=== PATIENT | male | born 1965 | race Caucasian/White ===

== ENCOUNTER 2019-01-29 10:33 | Observation (INO) | payer BC ==
[2019-01-29] MEDS ORDERED: ASPIRIN 81 MG CHEWABLE TABLET ONE (10:56)
[2019-01-29] MEDS ORDERED: NITROGLYCERIN 0.4 MG/TAB SL ONE (10:56)
[2019-01-29] MEDS ORDERED: NA CHLORIDE 0.9% 1,000 ML ONE (10:56)
[2019-01-29 11:19] LABS: Absolute Lymphocytes (CBC) 1.8 K/uL (0.7-4.9); Basophils % 0.9 % (0-1.3); Hematocrit 41.6 % (39.6-49.0); Lymphocytes % 27.3 % (15.3-44.8); MPV 8.1 fL (7.6-11.3); RBC Red Blood Cell Count 4.39 M/uL (4.33-5.43)
[2019-01-29 11:21] LABS: Protime INR 1.03
--- NOTE | 2019-01-29 11:29 | RAD REPORT ---
EXAM DESCRIPTION: RAD - Chest Single View - 01/29/2019 11:18 am CLINICAL HISTORY: CHEST PAIN Chest pain. COMPARISON: No comparisons FINDINGS: Portable technique limits examination quality. The lungs are grossly clear. The heart is normal in size. No displaced fractures. IMPRESSION: No acute intrathoracic process suspected.
[2019-01-29 11:44] LABS: ALT/SGPT 36 U/L (12-78); AST/SGOT 28 U/L (15-37); Albumin 4.1 g/dL (3.4-5.0); Alkaline Phosphatase 83 U/L (45-117); BUN Blood Urea Nitrogen 21 mg/dL (7-18); Bicarbonate 23 mmol/L (21-32); Bilirubin Direct 0.4 mg/dL (0-0.2); Bilirubin Total 1.8 mg/dL (0.2-1.0); Glucose Level 100 mg/dL (74-106); NT PRO-BNP 157 pg/mL (<125); Potassium 3.9 mmol/L (3.5-5.1); Protein, Total 7.2 g/dL (6.4-8.2); Sodium Level 141 mmol/L (136-145); Troponin (Emerg Dept Use Only) < 0.02 ng/mL (0.0-0.045)
[2019-01-29] MEDS ORDERED: MAGNE/ALUM HYDROXD 30 ML UCUP ONE (12:21)
[2019-01-29] MEDS ORDERED: KETOROLAC 30 MG/ML INJ ONE (12:22)
[2019-01-29] MEDS ORDERED: LIDOCAINE VISCOUS 2% SOLN 15 ML UDC ONE (12:22)
--- NOTE | 2019-01-29 13:25 | ER ---
Nurse's Notes [facility] Name: Norris Arguello Age: 54 yrs Sex: Male : 1965 Arrival Date: 01/29/2019 Time: 10:34 Bed 20 Private MD: Diagnosis: Chest pain, unspecified Presentation: 01/29 10:43 Presenting complaint: Patient states: chest pain for the past three days, much worse ch today, heavy pressure. antiacids did not help. had a negative stress test with Dr. Lainez two weeks ago. Transition of care: patient was not received from another setting of care. Onset of symptoms was January 26, 2019. Risk Assessment: Do you want to hurt yourself or someone else? Patient reports no desire to harm self or others. Initial Sepsis Screen: Does the patient meet any 2 criteria? No. Patient's initial sepsis screen is negative. Does the patient have a suspected source of infection? No. Patient's initial sepsis screen is negative. Care prior to arrival: None. 10:43 Method Of Arrival: Ambulatory 10:43 Acuity: FRIEDA 3 ch Historical: - Allergies: 10:44 No Known Allergies; ch - PMHx: 10:44 Hypertension; Hyperlipidemia; Anxiety; ch - Immunization history:: Adult Immunizations up to date. - Social history:: Smoking status: Patient/guardian denies using tobacco, Patient uses alcohol, on a daily basis. - Ebola Screening: : Patient negative for fever greater than or equal to 101.5 degrees Fahrenheit, and additional compatible Ebola Virus Disease symptoms Patient denies exposure to infectious person Patient denies travel to an Ebola-affected area in the 21 days before illness onset No symptoms or risks identified at this time. Screenin:55 Abuse screen: Denies threats or abuse. Denies injuries from another. Nutritional hb screening: No deficits noted. Tuberculosis screening: No symptoms or risk factors identified. Fall Risk None identified. Assessment: 10:55 General: Appears in no apparent distress. Behavior is calm, cooperative. Pain: hb Complains of pain in chest Pain does not radiate. Pain began 2-3 days ago. Neuro: Level of Consciousness is awake, alert, obeys commands, Oriented to person, place, time, situation. Cardiovascular: Heart tones S1 S2 present Capillary refill < 3 seconds Patient's skin is warm and dry. Respiratory: Airway is patent Respiratory effort is even, unlabored, Respiratory pattern is regular, symmetrical, Breath sounds are clear bilaterally. GI: No signs and/or symptoms were reported involving the gastrointestinal system. : No signs and/or symptoms were reported regarding the genitourinary system. EENT: No signs and/or symptoms were reported regarding the EENT system. Derm: Skin is intact, Skin is pink, warm \T\ dry. Musculoskeletal: No signs and/or symptoms reported regarding the musculoskeletal system. 11:45 Reassessment: Patient appears in no apparent distress at this time. Patient and/or hb family updated on plan of care and expected duration. Pain level reassessed. Patient is alert, oriented x 3, equal unlabored respirations, skin warm/dry/pink. 12:36 Reassessment: Patient appears in no apparent distress at this time. Patient and/or hb family updated on plan of care and expected duration. Pain level reassessed. Patient is alert, oriented x 3, equal unlabored respirations, skin warm/dry/pink. 13:20 Reassessment: Patient appears in no apparent distress at this time. Patient and/or hb family updated on plan of care and expected duration. Pain level reassessed. Patient is alert, oriented x 3, equal unlabored respirations, skin warm/dry/pink. Patient denies pain at this time. Patient states feeling better. Patient states symptoms have improved. 13:32 Reassessment: Pt has work emergency, requests to leave, instructed pt re: planned hb repeat labs and EKG, pt verbalized feeling better and wants to leave AMA. KRISH Page notified. Vital Signs: 10:44 BP 135 / 76; Pulse 64; Resp 14; Temp 98.9; Pulse Ox 99% on R/A; Weight 90.72 kg; Height ch 6 ft. (182.88 cm); Pain 5/10; 11:56 BP 120 / 69; Pulse 67; Resp 16; Pulse Ox 100% on R/A; Pain 5/10; hb 13:00 BP 122 / 68; Pulse 66; Resp 16; Pulse Ox 100% on R/A; Pain 0/10; hb 10:44 Body Mass Index 27.12 (90.72 kg, 182.88 cm) ED Course: 10:34 Patient arrived in ED. as 10:39 Page, KRISH Alexander is PHCP. cp 10:39 Yoav Shin MD is Attending Physician. cp 10:44 Triage completed. 10:44 Arm band placed on left wrist. Patient placed in an exam room, on a stretcher, on pulse ch oximetry. EKG completed in triage. Results shown to MD. 10:53 Esther Harkins, RN is Primary Nurse. hb 10:55 Patient has correct armband on for positive identification. Bed in low position. Call hb light in reach. Side rails up X 1. 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 Pulse ox on. NIBP on. 11:01 Initial lab(s) drawn, by me, sent to lab. Inserted saline lock: 20 gauge in right dh3 antecubital area, using aseptic technique. Blood collected. 11:05 Patient maintains SpO2 saturation greater than 95% on room air. hb 11:21 XRAY Chest (1 view) In Process Unspecified. EDMS 13:24 Perfecto Lainez MD is Referral Physician. cp 13:35 No provider procedures requiring assistance completed. IV discontinued, intact, hb bleeding controlled, No redness/swelling at site. Pressure dressing applied. Administered Medications: 10:59 Drug: Nitroglycerin 0.4 mg Route: Sublingual; hb 11:15 Follow up: Response: No adverse reaction hb 10:59 Drug: Aspirin Chewable Tablet 324 mg Route: PO; hb 11:44 Follow up: Response: No adverse reaction hb 11:02 Drug: NS 0.9% 1000 ml Route: IV; Rate: 1 bolus; Site: right antecubital; hb 12:24 Drug: GI Cocktail without - (Maalox Suspension 30 ml, Lidocaine Liquid 2 % 15 hb ml) Route: PO; 12:24 Drug: TORadol 30 mg Route: IVP; Site: right antecubital; hb Outcome: 13:35 AMA AMA form signed hb 13:35 Condition: stable hb 13:35 Instructed on follow up and referral plans. Demonstrated understanding of instructions. 13:42 Patient left the ED. hb Signatures: Dispatcher [employer] EDMS Lovely Tristan RN RN Lou Munoz as Benjamin Garnica PA PA cp Esther Harkins RN RN Sharon Ward [facility]
--- NOTE | 2019-01-29 13:25 | EDPHYS ---
Physician Documentation [facility] Name: Norris Arguello Age: 54 yrs Sex: Male : 1965 Arrival Date: 01/29/2019 Time: 10:34 Bed 20 Private MD: ED Physician Yoav Shin HPI: 01/29 10:55 This 54 yrs old Male presents to ER via Ambulatory with complaints of Chest cp Pain. 10:55 The patient or guardian reports chest pain that is located primarily in the substernal cp area. 10:55 Onset: 3 day(s) ago. The pain radiates to Associated signs and symptoms: Pertinent cp negatives: abdominal pain, cough, diaphoresis, dizziness, lower extremity pain, lower extremity swelling, recent travel, shortness of breath, syncope. The chest pain is described as like a "knot" sitting on chest. Duration: The patient or guardian reports multiple episodes, that wax and wane, with no pattern. Modifying factors: the symptoms are aggravated by activity. Historical: - Allergies: 10:44 No Known Allergies; ch - PMHx: 10:44 Hypertension; Hyperlipidemia; Anxiety; ch - Immunization history:: Adult Immunizations up to date. - Social history:: Smoking status: Patient/guardian denies using tobacco, Patient uses alcohol, on a daily basis. - Ebola Screening: : Patient negative for fever greater than or equal to 101.5 degrees Fahrenheit, and additional compatible Ebola Virus Disease symptoms Patient denies exposure to infectious person Patient denies travel to an Ebola-affected area in the 21 days before illness onset No symptoms or risks identified at this time. ROS: 11:00 Constitutional: Negative for body aches, chills, fever, poor PO intake. cp 11:00 Eyes: Negative for injury, pain, redness, and discharge. cp 11:00 ENT: Negative for drainage from ear(s), ear pain, sore throat, difficulty swallowing, difficulty handling secretions. 11:00 Neck: Negative for injury or acute deformity, stiffness. 11:00 Cardiovascular: Positive for chest pain, Negative for edema, palpitations. 11:00 Respiratory: Negative for cough, dyspnea on exertion, orthopnea, shortness of breath, wheezing. 11:00 Abdomen/GI: Negative for abdominal pain, nausea, vomiting, and diarrhea, constipation, anorexia, black/tarry stool, rectal bleeding. 11:00 Back: Negative for injury or acute deformity. 11:00 : Negative for urinary symptoms. 11:00 Neuro: Negative for altered mental status, headache, numbness, syncope, weakness. 11:00 All other systems are negative. Exam: 10:47 ECG was reviewed by the Attending Physician. cp 11:05 Constitutional: The patient appears in no acute distress, alert, awake, cp non-diaphoretic, non-toxic, well developed, well nourished. 11:05 Head/Face: Normocephalic, atraumatic. cp 11:05 Eyes: Periorbital structures: appear normal, Conjunctiva: normal, no exudate, no injection, Sclera: no appreciated abnormality, Lids and lashes: appear normal, bilaterally. 11:05 ENT: External ear(s): are unremarkable, Nose: is normal, Mouth: Lips: moist, Oral mucosa: pink and intact, moist, Posterior pharynx: is normal, airway is patent, no erythema, no exudate, Voice: is normal. 11:05 Neck: ROM/movement: is normal, is supple, without pain, no range of motions limitations, no nuchal rigidity. 11:05 Chest/axilla: Inspection: normal, Palpation: is normal, no crepitus, no tenderness. 11:05 Cardiovascular: Rate: normal, Rhythm: regular, Pulses: Pulses are 2+ in right radial artery and left radial artery. Heart sounds: murmur, not appreciated, rub, not appreciated, gallop, not appreciated, Edema: is not appreciated, JVD: is not appreciated. 11:05 Respiratory: the patient does not display signs of respiratory distress, Respirations: normal, no use of accessory muscles, no retractions, no splinting, no tachypnea, labored breathing, is not present, Breath sounds: are clear throughout, no decreased breath sounds, no stridor, no wheezing. 11:05 Abdomen/GI: Inspection: abdomen appears normal, Bowel sounds: active, all quadrants, Palpation: abdomen is soft and non-tender, in all quadrants, rebound tenderness, is not appreciated, voluntary guarding, is not appreciated, involuntary guarding, is not appreciated. 11:05 Back: pain, is absent, ROM is normal. 11:05 Skin: no rash present. 11:05 Neuro: Orientation: to person, place \\T\\ time. Mentation: is normal, Cerebellar function: is grossly normal, Motor: moves all fours, strength is normal, Sensation: is normal. Vital Signs: 10:44 BP 135 / 76; Pulse 64; Resp 14; Temp 98.9; Pulse Ox 99% on R/A; Weight 90.72 kg; Height ch 6 ft. (182.88 cm); Pain 5/10; 11:56 BP 120 / 69; Pulse 67; Resp 16; Pulse Ox 100% on R/A; Pain 5/10; hb 13:00 BP 122 / 68; Pulse 66; Resp 16; Pulse Ox 100% on R/A; Pain 0/10; hb 10:44 Body Mass Index 27.12 (90.72 kg, 182.88 cm) MDM: 10:51 Patient medically screened. cp 11:51 HEART Score: History: Moderately Suspicious (1), ECG: Normal (0), Age: > 45 and < 65 cp years (1), Risk Factors: 1 or 2 risk factors (1), [Hypercholesterolemia] [Hypertension] Troponin: < or = 1 x Normal Limit (0). The patient was given aspirin in the Emergency Department. 12:30 Physician consultation: Roge Anderson MD was called at 12:30, was contacted at 12:30, regarding admission, to the telemetry unit. patient's condition, requests consult with Dr Lainez before admitting since patient had exercise stress test 2 weeks ago. 12:40 Physician consultation: Perfecto Lainez MD was contacted at 12:35, regarding consult, patient's condition, wants repeat EKG and troponin and if normal, patient can be discharged to f/u next week in clinic. 13:22 Data reviewed: vital signs, nurses notes, lab test result(s), EKG, radiologic studies, cp plain films, I have discussed the patient's presentation/case with the attending Emergency Department Physician;. 13:22 Test interpretation: by ED physician or midlevel provider: ECG, plain radiologic cp studies. Counseling: I had a detailed discussion with the patient and/or guardian regarding: the historical points, exam findings, and any diagnostic results supporting the discharge/admit diagnosis, lab results, radiology results. 01/29 10:52 Order name: Basic Metabolic Panel; Complete Time: 11:51 cp 09/05 10:52 Order name: CBC with Diff; Complete Time: 11:51 cp 01/29 10:52 Order name: LFT's; Complete Time: 11:51 cp 01/29 10:52 Order name: Magnesium; Complete Time: 11:51 cp 01/29 10:52 Order name: NT PRO-BNP; Complete Time: 11:51 cp 05 10:52 Order name: PT-INR; Complete Time: 11:51 cp 01/29 10:52 Order name: Troponin (emerg Dept Use Only); Complete Time: 11:51 cp 01/29 10:52 Order name: XRAY Chest (1 view); Complete Time: 11:51 cp 01/29 10:52 Order name: EKG; Complete Time: 10:54 cp 01/29 10:52 Order name: Cardiac monitoring; Complete Time: 10:59 cp 01/29 10:52 Order name: EKG - Nurse/Tech; Complete Time: 10:59 cp 01/29 10:52 Order name: IV Saline Lock; Complete Time: 11: cp 01/29 10:52 Order name: Labs collected and sent; Complete Time: 11: cp 01/29 10:52 Order name: O2 Per Protocol; Complete Time: 10:59 cp 01/29 10:52 Order name: O2 Sat Monitoring; Complete Time: 10:59 cp EC:47 Rate is 61 beats/min. Rhythm is regular. [place] interval is normal. QRS interval is normal. cp QT interval is normal. T waves are Inverted in lead III. Interpreted by me. Reviewed by me. Administered Medications: 10:59 Drug: Nitroglycerin 0.4 mg Route: Sublingual; hb 11:15 Follow up: Response: No adverse reaction hb 10:59 Drug: Aspirin Chewable Tablet 324 mg Route: PO; hb 11:44 Follow up: Response: No adverse reaction hb 11:02 Drug: NS 0.9% 1000 ml Route: IV; Rate: 1 bolus; Site: right antecubital; hb 12:24 Drug: GI Cocktail without - (Maalox Suspension 30 ml, Lidocaine Liquid 2 % 15 hb ml) Route: PO; 12:24 Drug: TORadol 30 mg Route: IVP; Site: right antecubital; hb Disposition: 16:23 Co-signature as Attending Physician, Yoav Shin MD. rn Disposition: 01/29/19 13:24 Patient has left against medical advice. Impression: Chest pain, unspecified. - Patients states they are going to Home. - Condition is Stable. - Discharge Instructions: Nonspecific Chest Pain, Aspirin and Your Heart. Follow up: Perfecto Lainez MD; When: next week; Reason: Recheck today's complaints. - Problem is new. - Symptoms have improved. Signatures: Dispatcher [employer] EDLovely Kbaa RN RN Yoav Shin MD MD rn Page, Corey, PA PA cp Esther Harkins RN RN Corrections: (The following items were deleted from the chart) 13:42 13:24 01/29/2019 13:24 Patients has left against medical advice. Impression: Chest hb pain, unspecified. Patient states they are going to Home. Condition is Stable. Follow up: Perfecto Lainez; When: next week; Reason: Recheck today's complaints. Problem is new. Symptoms have improved. cp
[2019-01-29 13:49] VITALS: TEMP 98.9
[2019-01-29 13:51] VITALS: BP 120/69; O2SAT 100
--- NOTE | 2019-01-29 13:53 | P.PN ---
Date of Service: 01/29/19 Called to admit patient for chest pain. 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 Which was negative. Patient was at work today the HEB had sudden onset of chest pain therefore came in for further evaluation. Dr. Lainez was consulted from the ER he recommended repeating troponin level and observation. Patient however decided to leave against medical advice. Patient left before being seen.
--- NOTE | 2019-01-29 16:57 | EKG ---
Test Date: 2019-01-29 Test Time: 10:42:28 Imaging Aide: MAYE MEASUREMENT RESULTS: Intervals: Rate: 61 LA: 192 QRSD: 86 QT: 414 QTc: 416 [place]: P: 48 LA: 192 QRS: 19 T: 18 INTERPRETIVE STATEMENTS: Normal sinus rhythm Normal ECG No previous ECG available for comparison Electronically Signed On 01-29-19 16:54:44 CDT by Perfecto Lainez
== END 2019-01-29 13:42 | disposition left against medical advice (07) ==
LOC: ER 10:33 → ERHOLD 13:02
PROVIDERS: ADMIT Family Medicine; ATTEND Family Medicine
DX: R07.9 Chest pain, unspecified (principal); I10 Essential (primary) hypertension; E78.5 Hyperlipidemia, unspecified; F41.9 Anxiety disorder, unspecified; Z53.21 Procedure and treatment not carried out due to patient leaving prior to being seen by health care provider
CPT/HCPCS: 93005; 85025; 80048; 36415; 83735; 85610; 80076; 84484; 83880; 71045; 96374; 99285; J7030; G0378

== ENCOUNTER 2019-02-09 06:33 | Day surgery (SDC) | payer BC ==
--- OUTSIDE RECORDS SUMMARY | 2019-02-09 06:35 | XMS REPORT | Continuity of Care Document ---
:1965 Author Organization [facility] Care Team Providers Name Role Phone [facility] Unavailable Unavailable Problems Problem Status Onset Classification Date Comments Source Date Reported Benign essential 12/03/19 Diagnosis 12/02/2017 [facility] hypertension 18 Viral pharyngitis 12/03/19 Diagnosis 12/02/2017 [facility] 18 Hypothyroidism 06/08/19 Problem 12/02/2017 [facility] 18 Hypertensive 06/08/19 Problem 12/02/2017 [facility] disorder 18 Exposure to 06/08/19 Diagnosis 06/08/2017 [facility] Influenzavirus 18 Medications Medication Details Route Status Patient Ordering Order Source Instructions Provider Date Amlodipine 10 amlodipine 10 Active [facility] MG Oral Tablet mg tablet TAKE ONE (1) TABLET(S) BY MOUTH ONCE A DAY. atorvastatin 20 atorvastatin 20 Active [facility] MG Oral Tablet mg tablet TAKE ONE (1) TABLET(S) BY MOUTH ONCE A DAY. Levothyroxine levothyroxine Active [facility] Sodium 0.2 MG 200 mcg tablet Oral Tablet TAKE ONE (1) TABLET(S) BY MOUTH ONCE A DAY. Metoprolol metoprolol Active [facility] Tartrate 100 MG tartrate 100 mg Oral Tablet tablet Oseltamivir 75 oseltamivir 75 Active [facility] MG Oral Capsule mg capsule Take 1 capsule every day by oral route as directed for 10 days. Allergies, Adverse Reactions, Alerts No Known Medication Allergies Immunizations Immunization Date Given Site Status Last Comments Source Updated Tdap 11/24/2009 completed [facility] Results Order Results Value Reference Date Interpretation Comments Source Name Range RESULT negative [facility] 2017 SWAB Left and [facility] LOCATION Right 2018 tonsillar pillars Influenza A negative [facility] 2017 Influenza B negative [facility] 2017 Pathology Reports No Data Provided for This Section Diagnostic Reports No Data Provided for This Section Consultation Notes No Data Provided for This Section Discharge Summaries No Data Provided for This Section History and Physicals No Data Provided for This Section Vital Signs Vital Sign Value Date Comments Source Diastolic (mm Hg) 90 12/02/2017 [facility] Height 70 12/02/2017 [facility] Systolic (mm Hg) 150 12/02/2017 [facility] Weight 190 12/02/2017 [facility] Diastolic (mm Hg) 80 06/08/2017 [facility] Height 70 06/08/2017 [facility] Systolic (mm Hg) 112 06/08/2017 [facility] Weight 205 06/08/2017 [facility] Encounters Location Location Encounter Encounter Reason Attending ADM DC Status Source Details Type Number For Provider Date Date Visit [place] - Beth [id number] Beth 06/08 [facility] Cook, [id number] Cook /2017 - [employer]ORK M[employer]ER: [id number] [address] [place] [address] , Ph. 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 Procedures Procedure Code Date Perfomer Comments Source Appendectomy [facility] Cholecystectomy [facility] Assessment and Plan No Data Provided for This Section Plan of Care No Data Provided for This Section Social History Social History Date Source Smoking Status 06/08/2017 [facility] Never Smoker Family History No Data Provided for This Section Advance Directives No Data Provided for This Section Functional Status No Data Provided for This Section
--- OUTSIDE RECORDS SUMMARY | 2019-02-09 06:35 | XMS REPORT | Encounter Summary ---
:1965 Author Reason for Visit Medical Complaint Instructions 1. Exposure to Influenzavirus oseltamivir 75 mg capsule rapid flu (A+B) Discussion Note: None recorded.Patient educational handouts: No information available. Plan of Care Patient Instructions Take med as prescribed. Increase fluid intake. Handwashing, cover mouth when coughing. Avoid sharing utensils. If no fever for 24 hrs, then may return to work. May take otc motrin/tynenol for fever/pain. If symptoms worsen, follow with sob nausea/vomiting, call clinic or se pcp. If after hrs, see ER. Once recovered, recommend pt to get flu vaccine. If other family members have similar symptoms, encourage to come in to get treatment. Reminders Provider Appointments None recorded. Lab Rapid Flu 06/08/2017 [facility] (A+B) Referral None recorded. Procedures None recorded. Surgeries None recorded. Imaging None recorded. Medications Name Start Date amlodipine 10 mg tablet TAKE ONE (1) TABLET(S) BY MOUTH ONCE A DAY. atorvastatin 20 mg tablet TAKE ONE (1) TABLET(S) BY MOUTH ONCE A DAY. levothyroxine 200 mcg tablet TAKE ONE (1) TABLET(S) BY MOUTH ONCE A DAY. metoprolol tartrate 100 mg tablet oseltamivir 75 mg capsule Take 1 capsule every day by oral route as directed for 10 days. Medications Administered None recorded. Vitals Height Weight BMI Blood Pressure 5 ft 10 in 205 lbs 29.4 kg/m2 112/80 mm[Hg] Lab Results Date Name Specimen Result Interpretation Description Value Range Status Address Rapid Flu Influenza a negative [facility]: (A+B) [address] [place] [address] Influenza B negative [facility]: [address] [place] [address] Allergies Code Code System Name Reaction Severity Status Onset NKDA Problems Name Status Onset Date Source Hypothyroidism Active 06/08/2017 Hypertensive Disorder Active 06/08/2017 Procedures Date Name Performed by Appendectomy Information not available Cholecystectomy Information not available Vaccine List Vaccine Type Tdap 11/24/2009 Social History Smoking Status Never Smoker Past Encounters 06/08/2017 Exposure to Influenzavirus Beth Cook, [facility]: [address] [place] [address], Ph. History of Present Illness Cough Reported By: Patient HPI: Location: nasal/sinus. Quality: congested, dry cough. Duration: 1 days. Severity: moderate. Onset/Timing: sudden. Context: no foreign travel, non-smoker, sick contact. Modifying factors: OTC medication. Associated Symptoms: no sputum production, no shortness of breath, no wheezing, no sweats, no significant weight gain, no significant weight loss, no morning cough, no sore throat, no vomiting, no diarrhea, no rash, no nausea, no headache, muscle aches Review of Systems Basic Reported By: Patient Constitutional: Constitutional: no fever Eyes: Eyes: no eye complaints Nubc-Zuuc-Jpuml-Throat: Ears: no ear complaints. Nose: nose/sinus problems. Mouth/Throat: no sore throat, no bleeding gums, no mouth complaints, no teeth problems Cardiovascular: Cardiovascular: no chest pain, no shortness of breath, no known heart murmur Respiratory: Respiratory: no wheezing, no shortness of breath, cough Gastrointestinal: Gastrointestinal: no abdominal pain, no vomiting / diarrhea Genitourinary: Genitourinary: no urinary complaints, no discharge Musculoskeletal: Musculoskeletal: no muscle weakness, no arthralgias/joint pain, no back pain, muscle aches Skin: Skin: no abnormal / changing mole, no jaundice, no rashes Neurologic: Neurologic: no loss of consciousness, no weakness, no numbness, no seizures, no dizziness, no headaches Physical Exam Adult Basic, Adult Female Complete, Adult Male Complete, 14-21 Yr Females Reported By: Patient Constitutional: General Appearance: healthy-appearing, well-nourished, well-developed. Level of Distress: acutely ill. Ambulation: ambulating normally Psychiatric: Mental Status: active and alert, normal affect, normal mood. Orientation: to time, to place, to person Eyes: Lids and Conjunctivae: non-injected, no discharge, no pallor. Pupils: PERRLA, equal size, round, reactive to light. Corneas: grossly intact. EOM: EOMI, normal cover/uncover test. Lens: clear. Sclerae: non-icteric. Vision: acuity grossly intact Kyg-Blxi-Jatqv-Throat: Ears: no lesions on external ear, no outer ear tenderness, EACs clear, TMs clear. Hearing: no hearing loss. Nose: no lesions on external nose, nares patent, no septal deviation, nasal passages clear, no sinus tenderness, nasal discharge. Lips, Teeth, and Gums: no mouth or lip ulcers, no bleeding gums, normal dentition. Oropharynx: moist mucous membranes, no erythema, no exudates, tonsils not enlarged Neck: Neck: supple, trachea midline, no masses, FROM. Lymph Nodes: no cervical LAD, no supraclavicular LAD. Thyroid: no enlargement, non-tender, no nodules, no asymmetry Lungs: Respiratory effort: no dyspnea, no tachypnea, no use of accessory muscles, no intercostal retractions. Auscultation: breath sounds normal, clear to auscultation, no wheezing, no rales/crackles, no rhonchi, no retractions Cardiovascular: Heart Auscultation: RRR, no murmurs, no gallops, no rub, normal femoral pulse. Neck vessels: no carotid bruits. Apical impulse: not displaced. Rate and rhythm: regular
--- OUTSIDE RECORDS SUMMARY | 2019-02-09 06:36 | XMS REPORT | Encounter Summary ---
:1965 Author Care Team Providers Name Role Phone Tran Paez MD Primary Care Provider [phone] Reason for Visit Medical Complaint Instructions 1. Viral pharyngitis rapid strep group A, throat Discussion Note plenty of fluids, salt water gargles, rest. Tylenol sore throat medication or ibuprofen for pain. RTC or f/u with PCP if symptoms worsen or do not improve w/symptomatic treatment. may need throat culture. Patient educational handouts: No information available. Plan of Care Reminders Provider Appointments None recorded. Lab Rapid Strep 12/02/2017 [facility], Throat Referral None recorded. Procedures None recorded. Surgeries None recorded. Imaging None recorded. Medications Name Start Date amlodipine 10 mg tablet TAKE ONE (1) TABLET(S) BY MOUTH ONCE A DAY. atorvastatin 20 mg tablet TAKE ONE (1) TABLET(S) BY MOUTH ONCE A DAY. levothyroxine 200 mcg tablet TAKE ONE (1) TABLET(S) BY MOUTH ONCE A DAY. metoprolol tartrate 100 mg tablet Medications Administered None recorded. Vitals Height Weight BMI Blood Pressure 5 ft 10 in 190 lbs 27.3 kg/m2 150/90 mm[Hg] Lab Results None recorded. 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 History of Present Illness Throat-Oral Complaint Reported By: Patient HPI: Location: throat. Quality: sore throat; no cough. Severity: pain level 5/10. Duration: 3 days. Onset/Timing: sudden. Context: no sick contacts, non-smoker; no asthma. Modifying factors: ; has not self-medicated. Associated Symptoms: no fever, no headache, sore throat Review of Systems Basic Reported By: Patient Constitutional: Constitutional: no fever Bbzc-Gart-Nqmkm-Throat: Ears: no ear complaints. Nose: no nose/sinus problems. Mouth/Throat: sore throat Cardiovascular: Cardiovascular: no chest pain, no shortness of breath, no known heart murmur Respiratory: Respiratory: no cough, no wheezing, no shortness of breath Physical Exam Adult Basic Reported By: Patient Constitutional: General Appearance: healthy-appearing, well-nourished, well-developed. Level of Distress: NAD. Ambulation: ambulating normally Psychiatric: Mental Status: active and alert Few-Khtg-Vakvq-Throat: Ears: no lesions on external ear, no outer ear tenderness, EACs clear, TMs clear. Nose: no lesions on external nose, nares patent, no septal deviation, nasal passages clear, no sinus tenderness, post nasal drip. Lips, Teeth, and Gums: no mouth or lip ulcers, no bleeding gums, normal dentition. Oropharynx: moist mucous membranes, no exudates, tonsils not enlarged, erythema Neck: Neck: supple, trachea midline, no masses, FROM. Lymph Nodes: no cervical LAD Lungs: Respiratory effort: no dyspnea, no tachypnea, no use of accessory muscles, no intercostal retractions. Auscultation: breath sounds normal Cardiovascular: Heart Auscultation: RRR, no murmurs
--- OUTSIDE RECORDS SUMMARY | 2019-02-09 06:36 | XMS REPORT | Encounter Summary ---
:1965 Author Care Team Providers Name Role Phone Tran Paez MD Primary Care Provider [phone] Reason for Visit Medical Complaint Instructions 1. Viral pharyngitis rapid strep group A, throat 2. Benign essential hypertension Discussion Note plenty of fluids, salt water gargles, rest. Tylenol sore throat medication or ibuprofen for pain. RTC or f/u with PCP if symptoms worsen or do not improve w/symptomatic treatment. may need throat culture. Patient educational handouts: No information available. Plan of Care Patient Instructions take BP medication daily. Reminders Provider Appointments None recorded. Lab Rapid Strep 12/02/2017 [facility], Throat Referral None recorded. [...] lbs 27.3 kg/m2 150/90 mm[Hg] Lab Results Date Name Specimen Result Interpretation Description Value Range Status Address 12/02/2017 Rapid Result negative [facility]: Strep [address], [place], Throat [place] Swab Left and [facility]: Location Right [address] [place], [facility] [place] Allergies Code Code System Name Reaction Severity Status Onset NKDA Problems Name Status Onset Date Source Hypothyroidism Active 06/08/2017 Hypertensive Disorder Active 06/08/2017 Procedures Date Name Performed by Appendectomy Information not available Cholecystectomy Information not available Vaccine List Vaccine Type Tdap 11/24/2009 Social History Smoking Status Never Smoker Past Encounters 12/02/2017 Viral Pharyngitis; Benign Essential Hypertension 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 History of Present Illness Throat-Oral Complaint Reported By: Patient HPI: Location: throat. Quality: sore throat; no cough. Severity: pain level 5/10. Duration: 3 days. Onset/Timing: sudden. Context: no sick contacts, non-smoker; no asthma. Modifying factors: ; has not self-medicated. Associated Symptoms: no fever, no headache, sore throat Review of Systems Basic Reported By: Patient Constitutional: Constitutional: no fever Dsqf-Hgkm-Mfxmm-Throat: Ears: no ear complaints. Nose: no nose/sinus problems. Mouth/Throat: sore throat Cardiovascular: Cardiovascular: no chest pain, no shortness of breath, no known heart murmur Respiratory: Respiratory: no cough, no wheezing, no shortness of breath Physical Exam Adult Basic Reported By: Patient Constitutional: General Appearance: healthy-appearing, well-nourished, well-developed. Level of Distress: NAD. Ambulation: ambulating normally Psychiatric: Mental Status: active and alert Jvk-Vjsv-Ianjj-Throat: Ears: no lesions on external ear, no [...]
[2019-02-09] MEDS ORDERED: HEPA 1000U/500MLS 1,000 UNIT/500 ML BAG IV ONE (07:02)
[2019-02-09] MEDS ORDERED: NA CHLORIDE 0.9% 500 ML ONE (07:02)
[2019-02-09] MEDS ORDERED: LIDOCAINE 1% MPF 30 ML VIAL ONE (07:02)
[2019-02-09] MEDS ORDERED: NA CHLORIDE 0.9% 50 ML ONE (07:32)
[2019-02-09] MEDS ORDERED: FENTANYL CITR 100 MCG/2 ML ONE ×2 (07:32→08:38)
[2019-02-09] MEDS ORDERED: MIDAZOLAM HCL 2 MG/2 ML INJ ONE ×3 (07:32→07:44)
[2019-02-09] MEDS ORDERED: ATROPINE SULF 1 MG/10 ML SYR IV ONE (07:32)
[2019-02-09] MEDS ORDERED: NITROGLYCERIN/D5W 25 MG/250 ML BTL IV ONE (07:57)
[2019-02-09] MEDS ORDERED: NITROGLYCERIN 100 MCG/ML SYR (for cath lab use only) IV ONE (07:57)
[2019-02-09] MEDS ORDERED: PRASUGREL (EFFIENT) 10 MG TAB ONE (08:09)
[2019-02-09] MEDS ORDERED: ASPIRIN 325 MG TAB ONE (08:09)
[2019-02-09 09:33] VITALS: O2SAT 97
[2019-02-09 10:10] VITALS: BMI 28.7
[2019-02-09] MEDS ORDERED: ZOLPIDEM TARTRATE 10 MG TABLET PO PRN (10:59)
[2019-02-09] MEDS ORDERED: MORPHINE 4 MG/ML SYR IV PRN (11:00)
--- NOTE | 2019-02-10 02:19 | OP ---
Date of Procedure: 02/09/2019 Surgeon: Perfecto Lainez MD Keyseater Operator: Essence Aviles. Patient will remain in the hospital overnight. He will go home on aspirin, Plavix, beta-ashley, and statin at high dosages. Procedure: Left heart catheterization, selective coronary arteriogram, and primary stent of the prox imal LAD. Indication: Unstable angina and coronary artery disease. Description Of Procedure: Mr. Arguello was admitted to the hospital as an outpatient today on 2018 for the catheterization procedure mentioned above. He had symptoms that are classic for unstabl e angina. Despite normal echo and normal stress test, his symptoms were so convincing. He had just been to the emergency room for chest pain. He was prepped and draped in the routine sterile fashion. Given 5 mg of Versed and 75 of fentanyl for sedation. Right common femoral artery access obtained using a 6-Mongolian sheath. Angio-Seal was used to close the case. Angiography there was normal. Daya ctive catheterization was used with the Dionte catheter 6-Mongolian JL4 and JR4 respectively. The RCA was normal. The left main was normal. The circumflex was normal. He had about 70% to 80% stenosis in the proximal LAD. The LAD appeared to be calcified throughout. There was only 1 focal stenosis i n the proximal LAD. An XB LAD 3.5 guide was used to cannulate the left main. A 0.14 [place] wire ext ra-support exchange length was used to cross the lesion successfully. A 3.0 x 12 Synergy stent was d eployed in the proximal LAD at 14 atmosphere with 0% residuals. There were no complications. Blood Loss: 5 cc. Anesthesia: Total conscious sedation was 45 minutes. Medications: Medication used during the procedure included aspirin 325 mg daily, Effient 60 mg x1 do se, and Angiomax. Final Diagnosis: Coronary artery disease, status post primary stent of the proximal left anterior de scending coronary artery. NB/MODL Voice ID: [id number] Report ID: [id number]
[2019-02-10] MEDS ORDERED: ASPIRIN 81 MG CHEWABLE TABLET PO SCH (09:00)
[2019-02-10] MEDS ORDERED: CLOPIDOGREL 75 MG TABLET PO SCH (09:00)
[2019-02-10 14:04] VITALS: BP 111/62; TEMP 97.3
--- NOTE | 2019-02-11 01:27 | PN ---
Date of Progress Note: 02/10/2019 Mr. Arguello was basically admitted as an outpatient on 02/09/2019 because of unstable angina. He un derwent a heart catheterization and a stent of his proximal LAD. Overnight, he did very well. No ch est pain. Groin was intact. No complaint in that regard. Telemetry showed normal rhythm. Examinat ion was unchanged. The patient will go home today on his home medication including the metoprolol an d atorvastatin. I will increase the atorvastatin dose to 80 mg daily. I am also going to put him on Plavix 75 mg daily in addition to his aspirin for at least 6 months. He will go home today and come see me in the office in about 2 weeks. TRINIDAD/JAG Voice ID: [id number] Report ID: [id number]
== END 2019-02-10 13:45 | disposition home or self-care (01) ==
LOC: CCL 06:33 → 2ND 08:34 → CCL 02-10 13:45
DX: I25.110 Atherosclerotic heart disease of native coronary artery with unstable angina pectoris (principal); I10 Essential (primary) hypertension; E78.5 Hyperlipidemia, unspecified; E03.8 Other specified hypothyroidism; F41.9 Anxiety disorder, unspecified; Z82.49 Family history of ischemic heart disease and other diseases of the circulatory system
CPT/HCPCS: 85347 ×3; 92928; 93454; C1893; C1760; C1725; C1877; J2250 ×3; J3010 ×2; J0583

== ENCOUNTER 2019-03-10 10:26 | Observation (INO) | payer BC ==
[2019-03-10] MEDS ORDERED: NITROGLYCERIN 1 GM PKT TD ONE (12:03)
--- NOTE | 2019-03-10 12:11 | EKG ---
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
[2019-03-10 12:24] LABS: Hematocrit 42.6 % (39.6-49.0)
[2019-03-10 12:31] LABS: Absolute Lymphocytes (CBC) 1.4 K/uL (0.7-4.9); Basophils % 0.9 % (0-1.3); Lymphocytes % 22.8 % (15.3-44.8); RBC Red Blood Cell Count 4.51 M/uL (4.33-5.43)
[2019-03-10 12:32] LABS: Protime INR 1.07
--- NOTE | 2019-03-10 12:35 | RAD REPORT ---
EXAM DESCRIPTION: RAD - Chest Single View - 03/10/2019 12:31 pm CLINICAL HISTORY: CHEST PAIN Chest pain. COMPARISON: Chest Single View dated 01/29/2019 FINDINGS: Portable technique limits examination quality. The lungs are grossly clear. The heart is normal in size. No displaced fractures. IMPRESSION: No acute intrathoracic process suspected.
[2019-03-10 12:43] LABS: ALT/SGPT 39 U/L (12-78); AST/SGOT 29 U/L (15-37); Alkaline Phosphatase 85 U/L (45-117); BUN Blood Urea Nitrogen 21 mg/dL (7-18); Bicarbonate 25 mmol/L (21-32); Bilirubin Direct 0.4 mg/dL (0-0.2); Bilirubin Total 2.5 mg/dL (0.2-1.0); Glucose Level 103 mg/dL (74-106); Magnesium 2.1 mg/dL (1.8-2.4); NT PRO-BNP 70 pg/mL (<125); Protein, Total 7.1 g/dL (6.4-8.2); Sodium Level 140 mmol/L (136-145); Troponin (Emerg Dept Use Only) < 0.02 ng/mL (0.0-0.045)
--- NOTE | 2019-03-10 14:51 | ER ---
Nurse's Notes [facility] Name: Norris Arguello Age: 54 yrs Sex: Male : 1965 Arrival Date: 03/10/2019 Time: 10:27 Bed 16 Private MD: Perfecto Lainez S Diagnosis: Unstable angina Presentation: 03/10 10:30 Presenting complaint: Patient states: couple a days ago, 2-3 days, after i have been at 2 work a couple of hours it happens everyday, i had stent 3 weeks ago, i was just walking at work and i felt this tightness in my chest like a big weight and it almost took me to my knees, Dr. Lee office said i need to come here. Transition of care: patient was not received from another setting of care. Onset of symptoms was March 10, 2019. Risk Assessment: Do you want to hurt yourself or someone else? Patient reports no desire to harm self or others. Initial Sepsis Screen: Does the patient meet any 2 criteria? No. Patient's initial sepsis screen is negative. Does the patient have a suspected source of infection? No. Patient's initial sepsis screen is negative. Care prior to arrival: None. 10:30 Method Of Arrival: Ambulatory tw2 10:30 Acuity: FRIEDA 3 tw2 Triage Assessment: 10:32 General: Appears in no apparent distress. well groomed, Behavior is calm, cooperative, tw2 appropriate for age. Pain: Complains of pain in mid-sternal area. Cardiovascular: Reports chest pain, Denies shortness of breath. Historical: - Allergies: 10:37 No Known Allergies; tw2 - Home Meds: 10:37 levothyroxine 200 mcg oral tab [Active]; aspirin 81 mg Oral TbEC 1 tab once daily tw2 [Active]; metoprolol succinate 50 mg oral Tb24 1 tab twice a day [Active]; amlodipine 10 mg tab 1 tab once daily [Active]; atorvastatin 20 mg oral tab 1 tab once daily [Active]; alprazolam (bulk) miscellaneous [Active]; Creon oral oral [Active]; Plavix 75 mg Oral tab 1 tab once daily [Active]; Fish Oil oral oral [Active]; - PMHx: 10:37 Anxiety; Hyperlipidemia; Hypertension; tw2 - PSHx: 10:37 Cardiac stent; Cholecystectomy; tw2 - Immunization history:: Adult Immunizations. - Social history:: Smoking status: . - Ebola Screening: : Patient denies travel to an Ebola-affected area in the 21 days before illness onset. Screenin:02 Abuse screen: Denies threats or abuse. Nutritional screening: No deficits noted. tw2 Tuberculosis screening: No symptoms or risk factors identified. Fall Risk None identified. Assessment: 12:00 General: Appears in no apparent distress. uncomfortable, Behavior is calm, cooperative, jl7 appropriate for age. Pain: Complains of pain in left breast Pain currently is 2 out of 10 on a pain scale. at worst was 8 out of 10 on a pain scale. Quality of pain is described as pressure, Pain began 1 hour ago. Is continuous. Neuro: Level of Consciousness is awake, alert, obeys commands, Oriented to person, place, time, situation. Cardiovascular: Heart tones present Patient's skin is warm and dry. Respiratory: Airway is patent Respiratory effort is even, unlabored, Respiratory pattern is regular, symmetrical, Breath sounds are clear bilaterally. GI: No signs and/or symptoms were reported involving the gastrointestinal system. : No signs and/or symptoms were reported regarding the genitourinary system. EENT: No signs and/or symptoms were reported regarding the EENT system. Derm: Skin is pink, warm \\T\\ dry. 13:00 Reassessment: Patient appears in no apparent distress at this time. Patient and/or jl7 family updated on plan of care and expected duration. Pain level reassessed. Patient is alert, oriented x 3, equal unlabored respirations, skin warm/dry/pink. Patient states feeling better. Patient states symptoms have improved. 14:00 Reassessment: Patient appears in no apparent distress at this time. No changes from jl7 previously documented assessment. Patient and/or family updated on plan of care and expected duration. Pain level reassessed. Patient is alert, oriented x 3, equal unlabored respirations, skin warm/dry/pink. 14:30 Reassessment: Pt states "I feel a lot better, I can just follow up with Dr. Suárez." jl7 Explained to pt that due to his recent cath. history Dr. Suárez will want to see him here. ERD notified. 15:15 Reassessment: Dr. Anderson at bedside discussing plan of care. jl7 16:30 Reassessment: Dr. Suárez at bedside. jl7 Vital Signs: 10:33 BP 130 / 81; Pulse 61; Resp 17; Temp 97.6(TE); Pulse Ox 97% on R/A; Weight 90.72 kg tw2 (R); Height 5 ft. 10 in. (177.80 cm); Pain 5/10; 12:15 BP 141 / 73; Pulse 50; Resp 13 S; Pulse Ox 97% on R/A; jl7 10:33 Body Mass Index 28.70 (90.72 kg, 177.80 cm) tw2 ED Course: 10:27 Patient arrived in ED. as 10:27 Perfecto Lainez MD is Private Physician. as 10:32 Triage completed. tw2 10:32 Arm band placed on. EKG completed in triage. Results shown to MD. tw2 11:29 Bao Mills MD is Attending Physician. tw4 11:59 Sharon Morrison RN is Primary Nurse. jl7 12:00 Patient has correct armband on for positive identification. Placed in gown. Bed in low jl7 position. Call light in reach. Side rails up X 1. equipment monitor phototypesetting on. Pulse ox on. NIBP on. 12:00 Patient maintains SpO2 saturation greater than 95% on room air. jl7 12:05 Inserted saline lock: 22 gauge in left antecubital area, using aseptic technique. Blood kj1 collected. 12:09 Initial lab(s) drawn, by me, sent to lab. kj1 12:31 XRAY Chest (1 view) In Process Unspecified. EDMS 14:50 Roge Anderson MD is Hospitalizing Provider. tw4 17:40 No provider procedures requiring assistance completed. IV discontinued, intact, jl7 bleeding controlled, No redness/swelling at site. Pressure dressing applied. Administered Medications: 12:11 Drug: Nitro-Bid Ointment 2 % 0.5 inches Route: Transdermal; Site: anterior chest wall; jl7 12:30 Follow up: Response: No adverse reaction; Pain is decreased jl7 Outcome: 14:50 Decision to Hospitalize by Provider. tw4 17:40 Discharged to home ambulatory. jl7 17:40 Condition: stable 17:40 Discharge instructions given to patient, Instructed on discharge instructions, follow up and referral plans. medication usage, Demonstrated understanding of instructions, follow-up care, medications, Prescriptions given X 1. 17:41 Patient left the ED. jl7 Signatures: Dispatcher [employer] Lou Castro Tara, RN RN tw2 Sharon Morrison RN RN jl7 Bao Mills MD MD tw4 Usha Herron kj1
--- NOTE | 2019-03-10 14:51 | EDPHYS ---
Physician Documentation [facility] Name: Norris Arguello Age: 54 yrs Sex: Male : 1965 Arrival Date: 03/10/2019 Time: 10:27 Bed 16 Private MD: Perfecto Lainez S ED Physician [place] HPI: 03/10 11:29 This 54 yrs old Male presents to ER via Ambulatory with complaints of Chest tw4 Pain. 12:06 This 54 yrs old Male presents to ER via Ambulatory with complaints of Chest tw4 Pain. 12:06 The patient or guardian reports chest pain that is located primarily in the anterior tw4 chest wall, left. Onset: today. The pain does not radiate. Associated signs and symptoms: The patient has no apparent associated signs or symptoms. The chest pain is described as dull. Duration: The patient or guardian reports a single episode, that is now resolved. Modifying factors: The symptoms are alleviated by rest, the symptoms are aggravated by exertion, movement, walking. Severity of pain: At its worst the pain was moderate in the emergency department the pain has improved moderately. Historical: - Allergies: 10:37 No Known Allergies; tw2 - Home Meds: 10:37 levothyroxine 200 mcg oral tab [Active]; aspirin 81 mg Oral TbEC 1 tab once daily tw2 [Active]; metoprolol succinate 50 mg oral Tb24 1 tab twice a day [Active]; amlodipine 10 mg tab 1 tab once daily [Active]; atorvastatin 20 mg oral tab 1 tab once daily [Active]; alprazolam (bulk) miscellaneous [Active]; Creon oral oral [Active]; Plavix 75 mg Oral tab 1 tab once daily [Active]; Fish Oil oral oral [Active]; - PMHx: 10:37 Anxiety; Hyperlipidemia; Hypertension; tw2 - PSHx: 10:37 Cardiac stent; Cholecystectomy; tw2 - Immunization history:: Adult Immunizations. - Social history:: Smoking status: . - Ebola Screening: : Patient denies travel to an Ebola-affected area in the 21 days before illness onset. ROS: 12:06 Constitutional: Negative for fever, chills, and weight loss, Eyes: Negative for injury, tw4 pain, redness, and discharge, Respiratory: Negative for shortness of breath, cough, wheezing, and pleuritic chest pain, Abdomen/GI: Negative for abdominal pain, nausea, vomiting, diarrhea, and constipation. 12:06 Back: Negative for injury and pain, MS/Extremity: Negative for injury and deformity, Skin: Negative for injury, rash, and discoloration, Neuro: Negative for headache, weakness, numbness, tingling, and seizure. 12:06 Cardiovascular: Positive for chest pain, Negative for edema, orthopnea, palpitations. Exam: 12:06 Constitutional: This is a well developed, well nourished patient who is awake, alert, tw4 and in no acute distress. Head/Face: Normocephalic, atraumatic. Chest/axilla: Normal chest wall appearance and motion. Nontender with no deformity. No lesions are appreciated. Cardiovascular: Regular rate and rhythm with a normal S1 and S2. No gallops, murmurs, or rubs. Normal PMI, no JVD. No pulse deficits. Respiratory: Lungs have equal breath sounds bilaterally, clear to auscultation and percussion. No rales, rhonchi or wheezes noted. No increased work of breathing, no retractions or nasal flaring. Abdomen/GI: Soft, non-tender, with normal bowel sounds. No distension or tympany. No guarding or rebound. No evidence of tenderness throughout. Back: No spinal tenderness. No costovertebral tenderness. Full range of motion. MS/ Extremity: Pulses equal, no cyanosis. Neurovascular intact. Full, normal range of motion. Neuro: Awake and alert, GCS 15, oriented to person, place, time, and situation. Cranial nerves II-XII grossly intact. Motor strength 5/5 in all extremities. Sensory grossly intact. Cerebellar exam normal. Normal gait. Vital Signs: 10:33 BP 130 / 81; Pulse 61; Resp 17; Temp 97.6(TE); Pulse Ox 97% on R/A; Weight 90.72 kg tw2 (R); Height 5 ft. 10 in. (177.80 cm); Pain 5/10; 12:15 BP 141 / 73; Pulse 50; Resp 13 S; Pulse Ox 97% on R/A; jl7 10:33 Body Mass Index 28.70 (90.72 kg, 177.80 cm) tw2 MDM: 11:29 Patient medically screened. tw4 12:06 Data reviewed: vital signs, nurses notes. tw4 16:07 Physician consultation: Roge Anderson MD regarding admission, to the telemetry unit. tw4 patient's condition, and will see patient in ED, would like consultation with D/W DR LAINEZ. 03/10 11:56 Order name: Basic Metabolic Panel tw4 03/10 11:56 Order name: CBC with Diff tw4 03/10 11:56 Order name: LFT's tw4 03/10 11:56 Order name: Magnesium tw4 03/10 11:56 Order name: NT PRO-BNP tw4 03/10 11:56 Order name: PT-INR tw4 03/10 11:55 Order name: EKG Electrocardiogram; Complete Time: 12:16 EDMS 03/10 11:56 Order name: Troponin (emerg Dept Use Only) tw4 03/10 11:56 Order name: XRAY Chest (1 view) tw4 03/10 11:56 Order name: EKG; Complete Time: 11:57 tw4 03/10 11:56 Order name: Cardiac monitoring; Complete Time: 12:07 tw4 03/10 11:56 Order name: EKG - Nurse/Tech; Complete Time: 12:07 4 03/10 15:23 Order name: Diet Heart Healthy; Complete Time: 15:24 7 03/10 11:56 Order name: IV Saline Lock; Complete Time: 12:07 tw4 03/10 11:56 Order name: Labs collected and sent; Complete Time: 12:07 4 03/10 11:56 Order name: O2 Per Protocol; Complete Time: 12:10 tw4 03/10 11:56 Order name: O2 Sat Monitoring; Complete Time: 12:10 tw4 Administered Medications: 12:11 Drug: Nitro-Bid Ointment 2 % 0.5 inches Route: Transdermal; Site: anterior chest wall; 7 12:30 Follow up: Response: No adverse reaction; Pain is decreased jl7 Disposition: 03/10/19 14:50 Hospitalization ordered by Roge Anderson for Observation. Preliminary diagnosis is Unstable angina. - Bed requested for Telemetry/MedSurg (observation). - Status is Observation. jl7 - Condition is Stable. - Problem is an ongoing problem. - Symptoms have improved. UTI on Admission? No Signatures: Dispatcher [employer] EDSD Radha Nava RN RN dw Thao Joya, RN RN tw2 Sharon Morrison, RN RN jl7 Bao Mills MD MD tw4 Corrections: (The following items were deleted from the chart) 16:30 14:50 Hospitalization Ordered by Roge Anderson MD for Observation. Preliminary diagnosis dw is Unstable angina. Bed requested for Telemetry/MedSurg (observation). Status is Observation. Condition is Stable. Problem is an ongoing problem. Symptoms have improved. UTI on Admission? No. tw4 17:41 16:30 03/10/2019 14:50 Hospitalization Ordered by Roge Anderson MD for Observation. jl7 Preliminary diagnosis is Unstable angina. Bed requested for Telemetry/MedSurg (observation). Status is Observation. Condition is Stable. Problem is an ongoing problem. Symptoms have improved. UTI on Admission? No. dw
[2019-03-10] MEDS ORDERED: MORPHINE 4 MG/ML SYR IV PRN (17:42)
[2019-03-10] MEDS ORDERED: NITROGLYCERIN 0.4 MG/TAB SL PRN (17:42)
[2019-03-10] MEDS ORDERED: ACETAMINOPHEN 500 MG TAB PO PRN (17:42)
[2019-03-10 18:59] VITALS: TEMP 97.6; O2SAT 97
[2019-03-10 19:00] VITALS: BP 141/73
[2019-03-10] MEDS ORDERED: ATORVASTATIN 80 MG TAB PO SCH (21:00)
[2019-03-10] MEDS ORDERED: METOPROLOL TAR 50 MG TAB PO SCH (21:00)
--- NOTE | 2019-03-11 00:50 | CON ---
Date of Consultation: 03/10/[address] Anderson's service in the emergency room on 03/10/2019. I saw the patient in the emerge ncy room on 03/10/2019. Reason For Consultation: Unstable angina. History Of Present Illness: Mr. Arguello is a 54-year-old white male, he is very well known to me fr om recent office visits and admission. He underwent stents approximately 3 weeks ago of the proximal LAD. He comes back with a week worth of chest pain that is substernal pressure that he gets after m oderate to severe exertion with some diaphoresis and shortness of breath, but no nausea or vomiting. He has been having pain on a daily basis, but today had a very sharp stabbing chest pain radiating t o the back that made him almost go down to his knees. Denies any nausea, vomiting, diaphoresis, PND, orthopnea, pedal edema, palpitations, or syncope with that. He denied any fever or chills. He came to the emergency room where he had a negative workup, including EKG, chest x-ray, and blood work. Past Medical History: As stated above. Allergies: TO NO MEDICATION. Review of Systems: Negative. Social History: Negative. Family History: Positive for heart disease. Medications: At home include aspirin, Norvasc, Lipitor, metformin, and Synthroid. Physical Examination: Vital Signs: Stable. He was afebrile. HEENT: Negative. Neck: Supple with no bruit. Chest: Clear to auscultation and percussion. Cardiac: Revealed a regular rhythm and rate without any murmurs, gallops, or rubs. Abdomen: Benign. Extremities: Revealed no clubbing, cyanosis, or edema. Neurologic: He was nonfocal. Skin: Dry and intact. Pulses were present distally bilaterally. Impression And Plan: Mr. Arguello is a young man with dyslipidemia, diabetes, strong family history of heart disease, known coronary artery disease status post recent stent in the LAD with negative car diac workup, but symptoms that are very suggestive of restenosis. Patient is pain-free now. He has ruled out for an AL. I suggested a left heart catheterization. He agreed to proceed. I will schedu melisa that as an outpatient in the next 48 hours. Patient will go home on his present regimen, added Ne xium 40 mg b.i.d. just in case this is severe gastroesophageal reflux disease or gastritis from the P lavix. He will have the catheterization as an outpatient. His blood pressure and diabetes and dysli pidemia are well controlled. His thyroid is well controlled. Case was discussed with Dr. Anderson. TRINIDAD/JAG Voice ID: [id number] Report ID: [id number]
--- NOTE | 2019-03-11 02:36 | HP ---
Date of Admission: 03/10/2019 Chief Complaint: Chest pain. Primary Care Physician: Mele Juares MD Can Operator: Dr. Lainez with Cardiology. History Of Present Illness: The patient is a 54-year-old male with past medical history of coronary artery disease, status post recent stent 3 weeks ago , generalized anxiety disorder, hyperlipidemia, hypertension, hypothyroidism, who was in his usual state of health until 3 days prior to admission and the patient has been having chest pain, which is substernal, nonradiating, associated with some lightheadedness and some nausea. The patient states this happens while at work. 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 States the pain improves with the rest while he is in his office. The patient's symptoms are constant, moderate, progressively worsening. Patient therefore came into the ER for further evaluation. His workup revealed negative cardiac enzymes. EKG did not show any specific changes. No ST elevations. His chest x-ray was clear. The patient's pain improved with nitroglycerin paste. Patient was then referred for admission for further workup. Dr. Lainez was contacted by the ER, recommended further observation. Past Medical History: Hypertension, hyperlipidemia, generalized anxiety disorder, coronary artery disease, status post stent, hypothyroidism. Past Surgical History: Cardiac stent, cholecystectomy. Allergies: NO KNOWN DRUG ALLERGIES. Medications: List reviewed. Social History: Patient denies any tobacco use. No recent alcohol use. Family History: No premature coronary artery disease in the family. Review of Systems: Ten-point system reviewed, negative except as per HPI. Physical Examination: Vital Signs: Blood pressure 130/81, respirations 17, O2 saturation 97% on room air, heart rate 61, temperature 97.6. General: Awake, alert, oriented x3, in some mild distress due to pain, ill- appearing male. HEENT: Normocephalic, atraumatic. PERRLA. EOMI. Moist mucous membranes. Oropharynx is clear. Conjunctivae are anicteric. Neck: Supple. No JVD. Trachea midline. CV: S1, S2. Regular rate and rhythm. Respiratory: Clear to auscultation bilaterally. No wheezing or stridor. No use of accessory muscles. Gastrointestinal: Abdomen is soft, nontender, nondistended. Positive bowel sounds. No guarding or rigidity. Extremities: No clubbing, cyanosis, or edema. No calf tenderness. Neuro: Cranial nerves 2 through 12 intact grossly. No focal neurological deficit. Speech is normal. Skin: No rashes. Normal skin turgor. Psych: Mood is anxious. Affect is congruent with mood. Insight and judgment are good. Laboratory Data: WBC 6.2, H and H 15.1 and 42.6, platelets 182. INR 1.07. Sodium 140, potassium 4, chloride 108, CO2 of 25, BUN 21, creatinine 1.22, glucose 103, calcium 9, magnesium 2.1. Total bilirubin 2.5, AST 29, ALT 39, alkaline phosphatase 85. Troponin less than 0.02. BNP 70. Albumin 4. Imaging Studies: Chest x-ray personally reviewed shows no acute intrathoracic process. EKG shows sinus bradycardia, rate of 57. Previous EKG on 01/29/2019, the patient now in sinus Arturo. Assessment And Plan: A 54-year-old male with: 1. Unstable angina. Patient had recent cardiac cath with stent, possibility of in-stent thrombosis; however, troponin and EKG are normal. We will restart chest pain guidelines, aspirin, statin, beta-ashley. Cardiology has been consulted. I spoke with Dr. Lainez, who recommended repeat cardiac cath in a.m. to re-evaluate the stent. We will continue with nitroglycerin and morphine p.r.n. for pain. 2. Essential hypertension. We will continue home medications as appropriate. 3. Mixed hyperlipidemia. Continue high-dose statin. 4. Generalized anxiety disorder. Patient takes benzodiazepines as needed. 5. Hypothyroidism. We will continue levothyroxine dose. Check TSH. 6. Hyperbilirubinemia. Direct bilirubin is only 0.4, likely acute phase reactant. We will repeat in a.m. Plan: Admit patient to [facility], [facility] as observation. ADDENDUM: Patient was evaluated by Dr. Lainez in the ER. Patients symptoms improved. He rated his pain at 1 out of 10, he felt much more at ease after talking to Dr. Lainez. Cardiology recommends discharging home and setting up for repeat cath on . Dr. Lainez does not feel that this is related to stent rethrombosis - I agree with this assessment. Patient is compliant with plavix, no EKG changes and normal Troponin level. Pain improved. 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 Patient was discharged home in a stable condition to follow up for repeat heart catheterization. TERESA Voice ID: [id number] MTDD
[2019-03-11] MEDS ORDERED: ASPIRIN EC 81 MG TAB PO SCH (09:00)
[2019-03-11] MEDS ORDERED: LISINOPRIL 10 MG TAB PO SCH (09:00)
== END 2019-03-10 17:46 | disposition home or self-care (01) ==
LOC: ER 10:26 → ERHOLD 15:09
PROVIDERS: ADMIT Family Medicine; ATTEND Family Medicine
DX: I25.110 Atherosclerotic heart disease of native coronary artery with unstable angina pectoris (principal); Z95.5 Presence of coronary angioplasty implant and graft; F41.9 Anxiety disorder, unspecified; I10 Essential (primary) hypertension; E03.9 Hypothyroidism, unspecified; E78.2 Mixed hyperlipidemia
CPT/HCPCS: 93005; 85025; 80048; 36415; 83735; 85610; 80076; 84484; 83880; 71045; 99285; G0378 ×2

== ENCOUNTER 2019-03-12 07:05 | Day surgery (SDC) | payer BC ==
[2019-03-12] MEDS ORDERED: NA CHLORIDE 0.9% 500 ML ONE (07:21)
[2019-03-12] MEDS ORDERED: HEPA 1000U/500MLS 1,000 UNIT/500 ML BAG IV ONE (09:12)
[2019-03-12] MEDS ORDERED: MIDAZOLAM HCL 2 MG/2 ML INJ ONE ×2 (09:24→09:34)
[2019-03-12] MEDS ORDERED: FENTANYL CITR 100 MCG/2 ML ONE (09:24)
[2019-03-12] MEDS ORDERED: NA CHLORIDE 0.9% 0 ML ONE (09:25)
[2019-03-12] MEDS ORDERED: ATROPINE SULF 1 MG/10 ML SYR IV ONE (09:25)
[2019-03-12 12:51] VITALS: O2SAT 97
[2019-03-12 13:04] VITALS: BP 122/71; TEMP 97.8
--- NOTE | 2019-03-12 20:57 | OP ---
Surgeon: Perfecto Laniez MD Wood Handler: Essence Aviles. The patient will be going home today and he will see me in the office in 2 weeks. Procedure Performed: Left heart catheterization, selective coronary arteriogram. Indication: Coronary artery disease, status post recent stent on 02/12/2019 with unstable angina. Description Of Procedure: A 6-Latvian sheath was introduced in the right common femoral artery succes sfully. Angio-Seal was used to close the case. Angiography that was done using Dionte catheter rev ealed a completely patent LAD stent proximal before the first diagonal, diffuse plaquing in the proxi mal LAD with calcification, normal RCA, normal circumflex. 6-Latvian sheath and catheters were used. There were no complications. Blood Loss: 5 cc. Postoperative Diagnosis: Mild coronary artery disease, status post LAD stent patent. Plan: Continue medical therapy. Nexium 40 mg b.i.d. was added to his regimen. TRINIDAD/JAG Voice ID: [id number] Report ID: [id number]
== END 2019-03-12 12:10 | disposition home or self-care (01) ==
LOC: CCL 07:05
DX: I25.110 Atherosclerotic heart disease of native coronary artery with unstable angina pectoris (principal); I10 Essential (primary) hypertension; E78.5 Hyperlipidemia, unspecified; E03.9 Hypothyroidism, unspecified; E11.9 Type 2 diabetes mellitus without complications; F41.9 Anxiety disorder, unspecified; Z95.5 Presence of coronary angioplasty implant and graft; Z79.82 Long term (current) use of aspirin; Z82.49 Family history of ischemic heart disease and other diseases of the circulatory system
CPT/HCPCS: 93454; C1893; C1760; J2250 ×2; J3010; J7040; J0583

== ENCOUNTER 2023-01-10 12:03 | Observation (INO) | payer BC ==
--- OUTSIDE RECORDS SUMMARY | 2023-01-10 12:06 | XMS REPORT | Continuity of Care Document ---
:1965 Author Organization [facility] t Address [address] [place] [address] [address] [place] [address] Care Team Providers Name Role Phone Natalya Pagan Primary Care Physician NATALYA PAGAN Attending Clinician Unavailable LEXII FARRIS Attending Clinician Unavailable Problems This patient has no known problems. Allergies, Adverse Reactions, Alerts This patient has no known allergies or adverse reactions. Social History Social Habit Start Date Stop Date Quantity Comments Source Gender identity [facility] Sexual orientation Method [facility] Sex Assigned At [birth year] [facility] 00:00:00 00:00:00 Smoking Status Start Date Stop Date Source Tobacco smoking consumption unknown [facility] Medications This patient has no known medications. Procedures This patient has no known procedures. Plan of Care Planned Activity Planned Date Details Comments Source Future Scheduled 2022-12-30 SHINGLES VACCINES Method [facility] Test 09:02:07 (1 of 2) [code = SHINGLES VACCINES (1 of 2)] Future Scheduled 2022-12-30 INFLUENZA VACCINE Method [facility] Test 09:02:07 [code = INFLUENZA VACCINE] Future Scheduled 2022-12-30 Screening for [facility] Test 09:02:07 malignant neoplasm of colon (procedure) [code = 727995160] Future Scheduled 2022-12-30 Screening for [facility] Test 09:02:07 malignant neoplasm of colon (procedure) [code = 910978507] Future Scheduled 2022-12-30 Screening for [facility] Test 09:02:07 malignant neoplasm of colon (procedure) [code = 620028629] Future Scheduled 2022-12-30 COVID-[address] [facility] Test 09:02:07 (#1) [code = COVID-19 VACCINE (#1)] Future Scheduled 2022-12-30 Hepatitis C [facility] Test 09:02:07 screening (procedure) [code = 281752016] Future Scheduled 2022-12-30 Screening for [facility] Test 09:02:07 malignant neoplasm of colon (procedure) [code = 716219959] Future Scheduled 2022-12-30 Screening for [facility] Test 09:02:07 malignant neoplasm of colon (procedure) [code = 373861138] Encounters Start End Encounter Admission Attending Care Care Encounter Source Date/Time Date/Time Type Type Clinicians Facility Department ID 2020-04-05 2020-04-05 Outpatient NATALYA PAGAN [facility] [id number] [place] 00:00:00 00:00:[address] 2019-09-23 2019-09-23 [id number] [place] 14:08:00 18:27:00 LEXII RUSSELL Results This patient has no known results.
[2023-01-10] MEDS ORDERED: NITROGLYCERIN 0.4 MG/TAB SL ONE (12:37)
[2023-01-10] MEDS ORDERED: ASPIRIN 81 MG CHEWABLE TABLET ONE (12:37)
[2023-01-10 12:44] LABS: Absolute Lymphocytes (CBC) 2.4 K/uL (0.7-4.9); Hematocrit 45.7 % (39.6-49.0); Lymphocytes % 25.3 % (15.3-44.8); MCV 94.1 fL (80-100); MPV 7.6 fL (7.6-11.3); Platelets 235 thou/uL (152-406); RBC Red Blood Cell Count 4.86 M/uL (4.33-5.43)
--- NOTE | 2023-01-10 12:58 | RAD REPORT ---
EXAM DESCRIPTION: RAD - Chest Single View - 01/10/2023 12:52 pm CLINICAL HISTORY: CHEST PAIN COMPARISON: <Comparisons> FINDINGS: Lines: None. Lungs: No evidence of edema or pneumonia. Pleural: No significant pleural effusions or pneumothorax. Cardiac: The heart size is within normal limits. Mediastinum: Within normal limits. Bones: No acute fractures. Other: None IMPRESSION: No acute cardiopulmonary disease.
[2023-01-10 13:33] LABS: Albumin 3.9 g/dL (3.4-5.0); Bilirubin Direct 0.4 mg/dL (0-0.2); Bilirubin Indirect, Calculated 1.5 mg/dL (0.2-0.8); Bilirubin Total 1.9 mg/dL (0.2-1.0); Magnesium 1.8 mg/dL (1.6-2.4); Potassium 3.8 mEq/L (3.5-5.1); Protein, Total 7.4 g/dL (6.4-8.2); Troponin High Sensitivity 5.5 pg/mL (<58.9)
[2023-01-10] MEDS ORDERED: ONDANSETRON 4 MG/2 ML VIAL ONE (14:07)
[2023-01-10] MEDS ORDERED: MORPHINE 4 MG/ML SYR ONE (14:07)
--- NOTE | 2023-01-10 14:53 | EDPHYS ---
Physician Documentation [facility] Name: Norris Arguello Age: 57 yrs Sex: Male : 1965 Arrival Date: 01/10/2023 Time: 12:03 Bed 4 Private MD: ED Physician Ray Garnica HPI: 01/10 12:40 This 57 yrs old Male presents to ER via Ambulatory with complaints of Chest Pain, rt Headache. 12:40 Patient with known coronary artery disease with a stent placed in 2019 presents to the rt ED with 2 weeks of intermittent chest pain described as a pressure with associated lightheadedness, shortness of breath, nausea. The pain is nonradiating. Patient states the pain worsened today and is worse with exertion. Denies other aggravating or elevating factors. Patient did take 81 mg of aspirin prior to arrival. Denies other acute complaints at this time, symptoms are moderate in severity, no other aggravating or alleviating factors.. Historical: - Allergies: 12:32 No Known Allergies; cm10 - PMHx: 12:32 Anxiety; Hyperlipidemia; Hypertension; cm10 - PSHx: 12:32 Cardiac stent; cm10 - Immunization history:: Adult Immunizations up to date. - Social history:: Smoking status: Patient denies any tobacco usage or history of. - Family history:: not pertinent. ROS: 12:40 Constitutional: Negative for fever, chills, and weight loss, MS/Extremity: Negative for rt injury and deformity, Skin: Negative for injury, rash, and discoloration, Psych: Negative for depression, anxiety, suicide ideation, homicidal ideation, and hallucinations. 12:40 Cardiovascular: Positive for chest pain, Negative for edema. 12:40 Respiratory: Positive for shortness of breath, Negative for cough. 12:40 Abdomen/GI: Positive for nausea, Negative for abdominal pain, vomiting. 12:40 Neuro: Positive for near syncope, Negative for syncope. Exam: 12:40 Constitutional: This is a well developed, well nourished patient who is awake, alert, rt and in no acute distress. Head/Face: Normocephalic, atraumatic. Chest/axilla: Normal chest wall appearance and motion. Nontender with no deformity. No lesions are appreciated. Cardiovascular: Regular rate and rhythm with a normal S1 and S2. No gallops, murmurs, or rubs. Normal PMI, no JVD. No pulse deficits. Respiratory: Lungs have equal breath sounds bilaterally, clear to auscultation and percussion. No rales, rhonchi or wheezes noted. No increased work of breathing, no retractions or nasal flaring. Abdomen/GI: Soft, non-tender, with normal bowel sounds. No distension or tympany. No guarding or rebound. No evidence of tenderness throughout. Skin: Warm, dry with normal turgor. Normal color with no rashes, no lesions, and no evidence of cellulitis. MS/ Extremity: Pulses equal, no cyanosis. Neurovascular intact. Full, normal range of motion. Neuro: Awake and alert, GCS 15, oriented to person, place, time, and situation. Cranial nerves II-XII grossly intact. Motor strength 5/5 in all extremities. Sensory grossly intact. Cerebellar exam normal. Normal gait. Psych: Awake, alert, with orientation to person, place and time. Behavior, mood, and affect are within normal limits. 12:40 ECG was reviewed by the Attending Physician. Vital Signs: 12:31 BP 148 / 85; Pulse 74; Resp 18; Pulse Ox 95% ; Weight 88.45 kg; Height 5 ft. 10 in. ; ap3 Pain 8/10; 12:32 Temp 98.6; ap3 13:05 BP 131 / 78; Pulse 60; Pulse Ox 97% on R/A; ap3 13:38 BP 117 / 75; Pulse 59; Pulse Ox 99% on R/A; ap3 13:50 BP 119 / 75; Pulse 69; Resp 18; Pulse Ox 96% on R/A; Pain 6/10; ld1 14:30 BP 108 / 71; Pulse 57; Pulse Ox 98% on R/A; ap3 15:30 BP 129 / 88; Pulse 65; Pulse Ox 98% ; ap3 17:00 BP 121 / 74; Pulse 62; Pulse Ox 96% ; ap3 18:25 BP 121 / 80; Pulse 69; Pulse Ox 99% on R/A; ap3 12:31 Body Mass Index 27.98 (88.45 kg, 177.8 cm) ap3 12:31 Pain Scale: Adult ap3 13:50 Pain Scale: Adult ld1 MDM: 12:19 Patient medically screened. rt 14:53 Differential diagnosis: abnormal EKG, acute myocardial infarction, pneumonia, rt pneumothorax, pulmonary embolus, stable angina, unstable angina. HEART Score: History: Highly Suspicious (2), ECG: Normal (0), Age: > 45 and < 65 years (1), Risk Factors: > or = 3 Risk factors for atherosclerotic disease (2), Troponin: < or = 1 x Normal Limit (0), Total Score = 5. The patient was given aspirin in the Emergency Department. Data reviewed: vital signs, nurses notes, lab test result(s), EKG, radiologic studies. Consideration of Admission/Observation Patient was admitted/placed on observation. Management of patient was discussed with the following: Hospitalist: Agrees to admit. Admissions Specialist: Discussed with cardiology on-call, recommends Lovenox, nitro patch, recommend checking D-dimer, will evaluate the patient.. I considered the following discharge prescriptions or medication management in the emergency department Medications were administered in the Emergency Department. See MAR. Independent interpretation of the following test(s) in the Emergency Department X-Ray: My interpretation is No consolidation seen on interpretation of the x-ray images. Care significantly affected by the following chronic conditions: Hypertension, Coronary artery disease. Counseling: I had a detailed discussion with the patient and/or guardian regarding the historical points, exam findings, and any diagnostic results supporting the discharge/admit diagnosis, lab results, radiology results, the need for further work-up and treatment in the hospital. Response to treatment: the patient's symptoms have markedly improved after treatment. 01/10 12:30 Order name: Basic Metabolic Panel; Complete Time: 13:39 rt 01/10 12:30 Order name: CBC with Diff; Complete Time: 13:08 rt 01/10 12:30 Order name: LFT's; Complete Time: 13:39 rt 01/10 12:30 Order name: Magnesium; Complete Time: 13:39 rt 01/10 12:30 Order name: NT PRO-BNP; Complete Time: 13:39 rt 01/10 12:30 Order name: Troponin HS; Complete Time: 13:39 rt 01/10 14:47 Order name: D-Dimer rt 01/10 15:06 Order name: Basic Metabolic Panel [facility] 01/10 15:06 Order name: Basic Metabolic Panel [facility] 01/10 15:06 Order name: Lipid Profile [facility] 01/10 15:06 Order name: Lipid Profile [facility] 01/10 15:06 Order name: Troponin High Sensitivity [facility] 01/10 15:06 Order name: Troponin High Sensitivity [facility] 01/10 15:06 Order name: Troponin High Sensitivity [facility] 01/10 15:06 Order name: Troponin High Sensitivity [facility] 01/10 12:30 Order name: XRAY Chest (1 view); Complete Time: 13:08 rt 01/10 12:30 Order name: EKG; Complete Time: 12:30 rt 01/10 15:06 Order name: Heart Healthy [facility] 01/10 12:30 Order name: Cardiac monitoring; Complete Time: 12:30 rt 01/10 12:30 Order name: EKG - Nurse/Tech; Complete Time: 12:30 rt 01/10 12:30 Order name: IV Saline Lock; Complete Time: 12:30 rt 01/10 12:30 Order name: Labs collected and sent; Complete Time: 12:30 rt 01/10 12:30 Order name: O2 Per Protocol; Complete Time: 12:30 rt 01/10 12:30 Order name: O2 Sat Monitoring; Complete Time: 12:30 rt EC:40 Rate is 75 beats/min. Rhythm is regular, Normal Sinus Rhythm with No ectopy. QRS Tiro rt is Normal. CO interval is normal. QRS interval is normal. QT interval is normal. No Q waves. T waves are Normal. No ST changes noted. Interpreted by me. Administered Medications: 12:31 Drug: Aspirin PO Chewable Tablet 243 mg Route: PO; ap3 19:35 Follow up: Response: No adverse reaction as6 12:31 Drug: Nitroglycerin Sublingual 0.4 mg Route: Sublingual; ap3 13:50 Drug: Nitroglycerin Sublingual 0.4 mg Route: Sublingual; ld1 14:01 Drug: Nitroglycerin Sublingual 0.4 mg Route: Sublingual; ld1 19:35 Follow up: Response: No adverse reaction as6 14:02 Drug: morphine IVP or IV 4 mg Route: IVP; Infused Over: 4 mins; Site: right antecubital;ld1 18:30 Follow up: Response: No adverse reaction; Pain is decreased ap3 14:02 Drug: Ondansetron IVP 4 mg Route: IVP; Site: right antecubital; ld1 18:30 Follow up: Response: No adverse reaction ap3 15:37 Drug: Nitroglycerin Transdermal Patch 0.1 mg/hr 1 patches Route: Transdermal; Site: ap3 anterior chest wall; 15:38 Drug: Enoxaparin Sub-Q 1 mg/kg Route: Sub-Q; Site: abdomen; ap3 18:29 Follow up: Response: No adverse reaction ap3 Disposition Summary: 01/10/23 14:52 Hospitalization Ordered Hospitalization Status: Observation rt Provider: Mika Genao rt Location: Telemetry/MedSurg (observation) rt Condition: Stable rt Problem: new rt Symptoms: have improved rt Bed/Room Type: Standard rt Room Assignment: 404(01/10/23 19:04) [email or web address] Diagnosis - Chest pain, unspecified rt Forms: - Medication Reconciliation Form rt - SBAR form rt - Leadership Thank You Letter rt Signatures: Dispatcher [employer] Nohemy Barton RN RN ap3 Usha Herron kj1 Joseline Buitrago RN RN ld1 Ray Garnica MD MD rt Vandana Meyer RN RN cm10 Denilson Ramos RN as6 Corrections: (The following items were deleted from the chart) 19:04 14:52 rt kj1
--- NOTE | 2023-01-10 14:53 | ER ---
Nurse's Notes [facility] Name: Norris Arguello Age: 57 yrs Sex: Male : 1965 Arrival Date: 01/10/2023 Time: 12:03 Bed 4 Private MD: Diagnosis: Chest pain, unspecified Presentation: 01/10 12:31 Chief complaint: Patient states: chest tightness and pressure to the center of his cm10 chest onset 2 weeks ago. pt also reports that he has been feeling lightheaded and has had increased shortness of breath. Coronavirus screen: Client denies travel out of the [place] in the last 14 days. Ebola Screen: Patient denies travel to an Ebola-affected area in the 21 days before illness onset. No symptoms or risks identified at this time. Initial Sepsis Screen: Does the patient meet any 2 criteria? No. Patient's initial sepsis screen is negative. Does the patient have a suspected source of infection? No. Patient's initial sepsis screen is negative. Risk Assessment: Do you want to hurt yourself or someone else? Patient reports no desire to harm self or others. Onset of symptoms was January 10, 2023. 12:31 Method Of Arrival: Ambulatory cm10 12:31 Acuity: FRIEDA 2 cm10 Historical: - Allergies: 12:32 No Known Allergies; cm10 - PMHx: 12:32 Anxiety; Hyperlipidemia; Hypertension; cm10 - PSHx: 12:32 Cardiac stent; cm10 - Immunization history:: Adult Immunizations up to date. - Social history:: Smoking status: Patient denies any tobacco usage or history of. - Family history:: not pertinent. Screenin:[address] [facility] ED Fall Risk Assessment (Adult) History of falling in the last 3 months, ld1 including since admission No falls in past 3 months (0 pts). Abuse screen: Denies threats or abuse. Denies injuries from another. Nutritional screening: No deficits noted. Tuberculosis screening: No symptoms or risk factors identified. Assessment: 12:30 General: Appears in no apparent distress. comfortable, Behavior is calm, cooperative, ld1 appropriate for age. Pain: Complains of pain in chest Pain does not radiate. Pain currently is 8 out of 10 on a pain scale. Quality of pain is described as throbbing, Pain began 4 hours ago. Is continuous. Neuro: Level of Consciousness is awake, alert, obeys commands, Oriented to person, place, time, situation. Cardiovascular: Capillary refill < 3 seconds Patient's skin is warm and dry. Rhythm is sinus rhythm. Respiratory: Airway is patent Respiratory effort is even, unlabored. GI: Abdomen is round non-distended. : No signs and/or symptoms were reported regarding the genitourinary system. EENT: No signs and/or symptoms were reported regarding the EENT system. Derm: No signs and/or symptoms reported regarding the dermatologic system. Musculoskeletal: No signs and/or symptoms reported regarding the musculoskeletal system. 14:02 Reassessment: Pt c/o chest pain 11/03. Notified ERP. See MAR for orders. ld1 14:30 Reassessment: Patient and/or family updated on plan of care and expected duration. Pain ap3 level reassessed. Patient is alert, oriented x 3, equal unlabored respirations, skin warm/dry/pink. 16:00 Reassessment: Patient and/or family updated on plan of care and expected duration. Pain ap3 level reassessed. Patient is alert, oriented x 3, equal unlabored respirations, skin warm/dry/pink. 17:15 Reassessment: Patient and/or family updated on plan of care and expected duration. Pain ap3 level reassessed. Patient is alert, oriented x 3, equal unlabored respirations, skin warm/dry/pink. 18:29 Reassessment: Patient and/or family updated on plan of care and expected duration. Pain ap3 level reassessed. Patient is alert, oriented x 3, equal unlabored respirations, skin warm/dry/pink. Vital Signs: 12:31 BP 148 / 85; Pulse 74; Resp 18; Pulse Ox 95% ; Weight 88.45 kg; Height 5 ft. 10 in. ; ap3 Pain 8/10; 12:32 Temp 98.6; ap3 13:05 BP 131 / 78; Pulse 60; Pulse Ox 97% on R/A; ap3 13:38 BP 117 / 75; Pulse 59; Pulse Ox 99% on R/A; ap3 13:50 BP 119 / 75; Pulse 69; Resp 18; Pulse Ox 96% on R/A; Pain 6/10; ld1 14:30 BP 108 / 71; Pulse 57; Pulse Ox 98% on R/A; ap3 15:30 BP 129 / 88; Pulse 65; Pulse Ox 98% ; ap3 17:00 BP 121 / 74; Pulse 62; Pulse Ox 96% ; ap3 18:25 BP 121 / 80; Pulse 69; Pulse Ox 99% on R/A; ap3 12:31 Body Mass Index 27.98 (88.45 kg, 177.8 cm) ap3 12:31 Pain Scale: Adult ap3 13:50 Pain Scale: Adult ld1 ED Course: 12:04 Patient arrived in ED. rg4 12:05 Ray Garnica MD is Attending Physician. rt 12:23 Joseline Buitrago, BRYANT is Primary Nurse. ld1 12:30 No provider procedures requiring assistance completed. Inserted saline lock: 20 gauge ld1 in right antecubital area, using aseptic technique. Blood collected. Patient maintains SpO2 saturation greater than 95% on room air. 12:30 Patient has correct armband on for positive identification. Placed in gown. Bed in low ld1 position. Call light in reach. Side rails up X2. lithographic plate maker on. Pulse ox on. NIBP on. Door closed. Noise minimized. Warm blanket given. 12:32 Triage completed. cm10 12:54 XRAY Chest (1 view) In Process Unspecified. EDMS 14:52 Mika Genao MD is Hospitalizing Provider. rt 18:28 Arm band placed on right wrist. ap3 18:28 Provided Education on: medications prior to administrations. ap3 18:30 Patient admitted, IV remains in place. ap3 Administered Medications: 12:31 Drug: Aspirin PO Chewable Tablet 243 mg Route: PO; ap3 19:35 Follow up: Response: No adverse reaction as6 12:31 Drug: Nitroglycerin Sublingual 0.4 mg Route: Sublingual; ap3 13:50 Drug: Nitroglycerin Sublingual 0.4 mg Route: Sublingual; ld1 14:01 Drug: Nitroglycerin Sublingual 0.4 mg Route: Sublingual; ld1 19:35 Follow up: Response: No adverse reaction as6 14:02 Drug: morphine IVP or IV 4 mg Route: IVP; Infused Over: 4 mins; Site: right antecubital;ld1 18:30 Follow up: Response: No adverse reaction; Pain is decreased ap3 14:02 Drug: Ondansetron IVP 4 mg Route: IVP; Site: right antecubital; ld1 18:30 Follow up: Response: No adverse reaction ap3 15:37 Drug: Nitroglycerin Transdermal Patch 0.1 mg/hr 1 patches Route: Transdermal; Site: ap3 anterior chest wall; 15:38 Drug: Enoxaparin Sub-Q 1 mg/kg Route: Sub-Q; Site: abdomen; ap3 18:29 Follow up: Response: No adverse reaction ap3 Medication: 12:30 VIS not applicable for this client. ld1 Outcome: 14:52 Decision to Hospitalize by Provider. rt 18:30 Condition: good ap3 18:30 Instructed on the need for admit. 19:32 Admitted to Tele accompanied by tech, via wheelchair, room 404, with chart, Report jb4 called to BRYANT Curry 19:35 Patient left the ED. as6 Signatures: Dispatcher [employer] EDMS Ludy Heath rg4 Fercho Cadet RN RN jb4 Nohemy Benitez RN RN ap3 Joseline Buitrago RN RN ld1 Denilson Ramos RN RN as6 Ray Garnica MD MD rt Vandana Meyer, BRYANT RN cm10 Corrections: (The following items were deleted from the chart) 12:34 12:31 BP 148 / 85; Pulse 74bpm; Resp 18bpm; Pulse Ox 95%; 88.45 kg; Height 5 ft. 10 ap3 in.; BMI: 27.9; cm10
[2023-01-10] MEDS ORDERED: ONDANSETRON 4 MG/2 ML VIAL IV PRN (15:01)
[2023-01-10] MEDS ORDERED: ACETAMINOPHEN 325 MG TABLET PO PRN (15:01)
[2023-01-10] MEDS ORDERED: ENOXAPARIN 80 MG/0.8 ML SQ ONE (15:31)
[2023-01-10] MEDS ORDERED: NITROGLYCERIN 1 GM PKT TD ONE (15:31)
--- NOTE | 2023-01-10 17:29 | P.HP ---
Certification for Inpatient Patient admitted to: Observation With expected LOS: <2 Midnights Practitioner: I am a practitioner with admitting privileges, knowledge of patient current condition, hospital course, and medical plan of care. Services: Services provided to patient in accordance with Admission requirements found in Title 42 Section 412.3 of the Code of Federal Regulations Patient History Date of Service: 01/10/23 Reason for admission: Chest pain History of Present Illness: 57 y o male patient has a medical history significant for hypertension, hyperlipidemia, coronary artery disease status post stent placement and hypothyroidism who was evaluated emergency room for episode of chest pain. Pain was located in the epigastric/left side of the chest region rated 6-7 out of 10 in intensity. He denied overt episode of chest trauma, cough, shortness of breath, fever, chills, rigor. He had his clinical situation discussed with cardiology who recommended full dose anticoagulation with Lovenox and inpatient observation secondary to his prior coronary artery disease episode. Allergies No Known Allergies Allergy (Unverified 01/30/19 07:14) Home Medications: Amlodipine [Norvasc*] 10 mg PO DAILY 02/09/19 Aspirin Tab [Jeri Aspirin*] 325 mg PO DAILY 02/09/19 Levothyroxine Sodium [Synthroid] 200 mcg PO 0600 02/09/19 Metoprolol Tartrate [Lopressor] 100 mg PO BID 02/09/19 Atorvastatin Calcium [Lipitor*] 80 mg PO BEDTIME #30 tab 03/10/19 Pantoprazole [Protonix Tab*] 40 mg PO BID #60 tab 03/10/19 - Past Medical/Surgical History Diabetic: No -: htn -: hypothyroid -: cad - Social History Alcohol use: No CD- Drugs: No Caffeine use: No Review of Systems General: Unremarkable Eyes: Unremarkable ENT: Unremarkable Respiratory: Unremarkable Cardiovascular: Chest Pain Gastrointestinal: Unremarkable Genitourinary: Unremarkable Musculoskeletal: Unremarkable Neurological: Unremarkable Physical Examination - Physical Exam General: Alert, Oriented x3 HEENT: Atraumatic, Normocephalic Neck: Supple Respiratory: Normal air movement Cardiovascular: Regular rate/rhythm, Normal S1 S2 Gastrointestinal: Soft and benign Musculoskeletal: No swelling Neurological: Normal speech, Normal strength at 5/5 x4 extr - Studies Laboratory Data (last 24 hrs) 01/10/23 01/10/23 12:32 12:32 WBC 9.40 Hgb 15.7 Hct 45.7 Plt Count 235 Sodium 140 Potassium 3.8 BUN 15 Creatinine 1.14 Glucose 114 H Magnesium 1.8 Total Bilirubin 1.9 H AST 33 ALT 47 Alkaline Phosphatase 108 Assessment and Plan - Plan Chest pain: Deemed secondary to possible ACS. Patient did have history of stent placement in the coronary artery prior to now. We will continue telemetry monitoring and follow trend of troponin. We will continue pain control with as needed morphine. Continue lovenox, aspirin and statin therapy. Hypertension: We will monitor vital signs per unit protocol continue antihypertensive medications. Coronary artery disease: Prior stent noted. Cardiology following for management of suspected ACS. To statin, aspirin, Lovenox therapy to be continued. Telemetry monitoring to be continued Hypothyroidism: We will continue levothyroxine dose Hyperlipidemia: We will continue statin therapy Prophylaxis: Lovenox for anticoagulation for ACS and he should suffice for DVT prophylaxis. CODE STATUS: Full code Disposition: We will continue work-up of ACS and discharge patient once he is cleared by cardiology - Advance Directives Does patient have a Living Will: No Does patient have a Durable POA for Healthcare: No
[2023-01-10] MEDS ORDERED: MORPHINE 2 MG/ML SYR IV PRN (17:30)
[2023-01-10] MEDS ORDERED: MORPHINE 2 MG/ML SYR ONE (19:33)
[2023-01-10] MEDS: ENOXAPARIN 100 MG/ML SYR SQ SCH (19:55)
[2023-01-10] MEDS ORDERED: MORPHINE 2 MG/ML SYR IV ONE (20:01)
[2023-01-10] MEDS ORDERED: KETOROLAC 30 MG/ML INJ IV ONE (21:21)
[2023-01-10] MEDS ORDERED: HYDROMORPHONE HCL 0.5 MG/0.5 ML INJ IV ONE (22:31)
[2023-01-10 23:47] VITALS: BMI 30.8
[2023-01-11 05:00] LABS: Potassium 3.8 mEq/L (3.5-5.1)
[2023-01-11] MEDS ORDERED: LEVOTHYROXINE SOD 0.125 MG TAB PO SCH (06:30)
[2023-01-11] MEDS ORDERED: ASPIRIN 81 MG CHEWABLE TABLET PO SCH (09:00)
[2023-01-11] MEDS: ENOXAPARIN 100 MG/ML SYR SQ SCH (09:16)
[2023-01-11] MEDS: HYDROMORPHONE HCL 0.5 MG/0.5 ML INJ IV PRN ×2 (10:10→14:07)
--- NOTE | 2023-01-11 13:59 | EKG ---
Test Date: 2023-01-10 Test Time: 12:27:19 General House Worker: ELVA MEASUREMENT RESULTS: Intervals: Rate: 75 SD: 194 QRSD: 88 QT: 398 QTc: 444 Buhl: P: 69 SD: 194 QRS: 35 T: 38 INTERPRETIVE STATEMENTS: Normal sinus rhythm Normal ECG Compared to ECG 03/10/2019 10:30:51 Sinus bradycardia no longer present Electronically Signed On 01-11-23 13:56:28 CDT by Jhonathan Vital
--- NOTE | 2023-01-11 14:07 | ECHO ---
HEIGHT: 5 ft 10 in WEIGHT: 195 lb 0 oz DATE OF STUDY: 01/11/[address]: Mika Genao MD 2-DIMENSIONAL: YES M.MODE: YES DOPPLER: YES COLOR FLOW: YES TDS: PORTABLE: YES DEFINITY: BUBBLE STUDY: DIAGNOSIS: CHEST PAIN CARDIAC HISTORY: CATHERIZATION: YES SURGERY: PROSTHETIC VALVE: PACEMAKER: MEASUREMENTS (cm) DIASTOLIC (NORMALS) SYSTOLIC (NORMALS) IVSd 0.9 (0.6-1.2) LA Diam 3.8 (1.9-4.0) LVEF 74% LVIDd 4.9 (3.5-5.7) LVIDs 2.8 (2.0-3.5) %FS 43% LVPWd 1.1 (0.6-1.2) Ao Diam 2.5 (2.0-3.7) 2 DIMENSIONAL ASSESSMENT: RIGHT ATRIUM: NORMAL LEFT ATRIUM: NORMAL RIGHT VENTRICLE: NORMAL LEFT VENTRICLE: NORMAL TRICUSPID VALVE: MILD TRICUSPID REGURGITATION MITRAL VALVE: MILD MITRAL REGURGITATION PULMONIC VALVE: MILD PULMONIC INSUFFICIENCY AORTIC VALVE: NORMAL PERICARDIAL EFFUSION: NONE AORTIC ROOT: NORMAL LEFT VENTRICULAR WALL MOTION: NORMAL DOPPLER/COLOR FLOW: SEE BELOW COMMENTS: 1. NORMAL LEFT VENTRICULAR EJECTION FRACTION GREATER THAN 60% 2. NORMAL WALL MOTION 3. MILD MITRAL REGURGITATION 4. MILD TRICUSPID REGURGITATION/ PULMONIC INSUFFICIENCY TECHNOLOGIST: MARCELINA ROGERS
[2023-01-11] MEDS ORDERED: NA CHLORIDE 0.9% 500 ML ONE (14:55)
[2023-01-11] MEDS ORDERED: HEPA 1000U/500MLS 2,000 UNIT/1,000 ML BAG IV ONE (15:03)
[2023-01-11] MEDS ORDERED: LIDOCAINE 1% 20 ML MDV ONE (15:03)
[2023-01-11] MEDS ORDERED: HEPARIN 5000 UNIT/ML 1 ML VIAL ONE (15:04)
[2023-01-11] MEDS ORDERED: VERAPAMIL HCL 10 MG/4 ML VIAL IV ONE (15:06)
--- NOTE | 2023-01-11 17:05 | P.PN ---
Subjective Date of Service: 01/12/23 Chief Complaint: Chest pain Physical Examination - Vital Signs Temperature: 98.8 F Blood Pressure: 147/80 Pulse: 82 Respirations: 18 Pulse Ox (%): 96 Assessment And Plan - Plan Chest pain: Deemed secondary to possible ACS. Patient did have history of stent placement in the coronary artery prior to now. We will continue telemetry monitoring and follow trend of troponin. We will continue pain control with as needed morphine. Continue lovenox, aspirin and statin therapy. Hypertension: We will monitor vital signs per unit protocol continue antihypertensive medications. Coronary artery disease: Prior stent noted. Cardiology following for management of suspected ACS. To statin, aspirin, Lovenox therapy to be continued. Telemetry monitoring to be continued Hypothyroidism: We will continue levothyroxine dose Hyperlipidemia: We will continue statin therapy Prophylaxis: Lovenox for anticoagulation for ACS and he should suffice for DVT prophylaxis. CODE STATUS: Full code Disposition: We will continue work-up of ACS and discharge patient once he is cleared by cardiology
--- NOTE | 2023-01-11 19:47 | P.DS ---
Admission Date: 01/10/23 Discharge Date: 01/11/23 Disposition: ROUTINE DISCHARGE Discharge Condition: GOOD Reason for Admission: Chest pain Consultations: Cardiology Procedures: Chest x-ray 01/10/2023 FINDINGS: Lines: None. Lungs: No evidence of edema or pneumonia. Pleural: No significant pleural effusions or pneumothorax. Cardiac: The heart size is within normal limits. Mediastinum: Within normal limits. Bones: No acute fractures. Other: None IMPRESSION: No acute cardiopulmonary disease. Heart catheterization 01/10/2023 Per cardiology no occlusive findings. See full report for details. Brief History of Present Illness: 57 y o male patient has a medical history significant for hypertension, hyperlipidemia, coronary artery disease status post stent placement and hypothyr oidism who was evaluated emergency room for episode of chest pain. Pain was located in the epigastric/left side of the chest region rated 6-7 out of 10 in intensity. He denied overt episode of chest trauma, cough, shortness of breath, fever, chills, rigor. He had his clinical situation discussed with cardiology who recommended full dose anticoagulation with Lovenox and inpatient observation secondary to his prior coronary artery disease episode. Hospital Course: Patient was admitted for chest pain with history of CAD. He had a heart catheterization performed today on 01/11/2023 with radial access, cardiology reports nonocclusive mild CAD recommends follow-up in 1 week in the clinic. D- dimer is also obtained which was negative, patient stable for discharge at this time to follow-up with cardiology outpatient. Vital Signs/Physical Exam: Temp Pulse Resp BP Pulse Ox 98.8 F 78 18 144/81 H 96 01/11/23 17:05 01/11/23 18:00 01/11/23 18:00 01/11/23 18:00 01/11/23 17:05 General: Alert, In no apparent distress, Oriented x3 HEENT: Atraumatic, PERRLA, EOMI Neck: Supple, JVD not distended Respiratory: Clear to auscultation bilaterally, Normal air movement Cardiovascular: Regular rate/rhythm, Normal S1 S2 Gastrointestinal: Normal bowel sounds, No tenderness Musculoskeletal: No tenderness Integumentary: No rashes Neurological: Normal speech, Normal tone, Normal affect Laboratory Data at Discharge: WBC 9.40 thou/uL (4.3-10.9) 01/10/23 12:32 Hgb 15.7 g/dL (13.6-17.9) 01/10/23 12:32 Hct 45.7 % (39.6-49.0) 01/10/23 12:32 Plt Count 235 thou/uL (152-406) 01/10/23 12:32 Sodium 138 mEq/L (136-145) 01/11/23 04:12 Potassium 3.8 mEq/L (3.5-5.1) 01/11/23 04:12 BUN 13 mg/dL (7-18) 01/11/23 04:12 Creatinine 1.04 mg/dL (0.70-1.30) 01/11/23 04:12 Glucose 94 mg/dL (74-106) 01/11/23 04:12 Magnesium 1.8 mg/dL (1.6-2.4) 01/10/23 12:32 Total Bilirubin 1.9 mg/dL (0.2-1.0) H 01/10/23 12:32 AST 33 U/L (15-37) 01/10/23 12:32 ALT 47 U/L (16-61) 01/10/23 12:32 Alkaline Phosphatase 108 U/L (45-117) 01/10/23 12:32 Triglycerides 205 mg/dL (<150) H 01/11/23 04:12 Cholesterol 127 mg/dL (<200) 01/11/23 04:12 HDL Cholesterol 52 mg/dL (40-60) 01/11/23 04:12 Cholesterol/HDL Ratio 2.44 01/11/23 04:12 Home Medications: Aspirin 81 mg PO DAILY 01/10/23 Alprazolam [Xanax] 0.25 mg PO TIDP PRN 01/11/23 Amlodipine [Norvasc] 10 mg PO DAILY 01/11/23 Atorvastatin Calcium [Lipitor] 80 mg PO BEDTIME 01/11/23 Levothyroxine Sodium 175 mcg PO DAILY 01/11/23 Liothyronine Sodium [Cytomel] 5 mcg PO DAILY 01/11/23 Testosterone Cypionate 0.5 ml IM EVERY 7TH DAY 01/11/23 Diet: AHA Followup: Erlin Fischer MD [Primary Care Provider] - Jhonathan Vital MD [ACTIVE - CAN ADMIT] - 1 Week Time spent managing pt's care (in minutes): 20
--- NOTE | 2023-01-11 19:50 | OP ---
Date of Procedure: 01/11/2023 Surgeon: OLMAN AHRO Procedure Performed: Selective coronary angiogram. Indication: Unstable angina. Access: Right radial artery 6-[place]an closed with TR band. Complications: None. Bleeding: Less than 20 mL. Anesthesia: The total sedation time was 25 minutes. Description Of Procedure: After risks, benefits, alternatives were explained, patient agreed to proc edure and signed informal consent. Patient was brought into the cardiac catheterization laboratory, prepped and draped in the usual sterile fashion. Then, I accessed the right radial artery using pedi atric micropuncture kit, placed 6-[place]an Slender sheath and took 5-[place]an [place] 4 catheter into the a ortic root, engaged the RCA and the catheter did not engage the left main very well. After taken the RCA views, I exchanged for 6-[place]an JL3.5 guide and engaged the left main, took standard views and t he catheter was pushed over the wire into the LV, measured the LVEDP and pullback did not record any gradient. I then removed the catheter and the sheath and placed TR band with good hemostasis. Findings: 1.Left main; large and normal. 2.LAD; proximal stent is patent and then the rest of LAD is normal and normal diagonal branches. 3.Left circumflex; large and has an ostial 30% stenosis. 4.RCA; large and dominant with ostial to proximal 40% stenosis. The rest of the artery is normal. 5.Normal LVEDP of 7 mmHg. Conclusion: 1.Moderate nonobstructive coronary artery disease with patent LAD stent. 2.Normal LVEDP. Recommendation: Medical management. SR/MODL Voice ID: [id number] Report ID: [id number]
--- NOTE | 2023-01-11 20:00 | CON ---
Date of Consultation: 01/11/2023 Reason For Consultation: Chest pain. History Of Present Illness: This is a 57-year-old male, known to have history of coronary artery dis ease, status post PCI of the proximal LAD in the distant past. Comes in with chest pain, retrosterna l, pressure-like, feels that something is sitting on his chest, radiates to his neck and any activiti es reduces the chest pain. He was admitted. Serial cardiac enzymes were negative, and EKG without a ny specific abnormalities. I evaluated him by bedside and he still having active chest pain. His D- dimer was negative. Past Medical History: Hypertension, coronary artery disease, hypothyroidism. Medications: Refer reconciliation sheet for detailed list. Allergies: NO KNOWN DRUG ALLERGIES. Family History: No premature coronary artery disease or cancer. Social History: Does not drink or smoke or use any drugs. Review of Systems: All systems were reviewed, they were negative except as mentioned in HPI. Physical Examination: Vital Signs: Reviewed. Head and Neck: Pupils are equal, reactive to light. Intact eye movements. No JVD. No cervical lym phadenopathy. Neck is supple. Thyroid is not enlarged. Lungs: Clear to auscultation bilaterally. No rhonchi, wheezing, or crackles. No accessory muscle u se. Heart: Regular rate and rhythm. No extra sounds. Abdomen: Soft, nontender. Bowel sounds positive. No organomegaly. No masses or hernia. No rigidi ty or rebound. Extremities: No edema, clubbing, or cyanosis. Intact pulses. Skin: No rash. No nodule. Neurologic: Alert, awake, oriented x3. No acute focal deficits appreciated. Lymph Nodes: No cervical or axillary lymphadenopathy. Investigations: Labs were reviewed. All troponins are negative. Assessment And Recommendations: 1.Chest pain in the setting of known coronary artery disease and PCI of the LAD and has typical symp toms suggestive of unstable angina. He received a dose of Lovenox and baby aspirin and we will take him to lab engineer and perform coronary angiogram to identify the coronary anatomy and plan accordingly. 2.Dyslipidemia. Recommend Lipitor 40 mg q.h.s. 3.Hypertension. Blood pressure is controlled. Continue current therapy. SR/MODL Voice ID: [id number] Report ID: [id number]
[2023-01-11 22:25] VITALS: O2SAT 96
[2023-01-12 16:14] VITALS: BP 147/80; TEMP 98.8
--- NOTE | 2023-01-15 15:54 | EKG ---
Test Date: 2023-01-10 Test Time: 21:29:03 Data Center Manager: MAKEDA MEASUREMENT RESULTS: Intervals: Rate: 75 [place]: 178 QRSD: 82 QT: 420 QTc: 469 [place]: P: 37 [place]: 178 QRS: 12 T: 15 INTERPRETIVE STATEMENTS: Normal sinus rhythm Nonspecific ST and T wave abnormality Prolonged QT Abnormal ECG Compared to ECG 01/10/2023 12:27:19 ST (T wave) deviation now present Prolonged QT interval now present Electronically Signed On 01-15-23 15:52:41 CDT by Jhonathan Vital
--- NOTE | 2023-01-16 13:00 | EKG ---
Test Date: 2023-01-10 Test Time: 21:29:32 Transcriber: MAKEDA MEASUREMENT RESULTS: Intervals: Rate: 74 [place]: 180 QRSD: 82 QT: 416 QTc: 461 [place]: P: 50 NM: 180 QRS: 12 T: 23 INTERPRETIVE STATEMENTS: Normal sinus rhythm Normal ECG Compared to ECG 01/10/2023 21:29:03 ST (T wave) deviation no longer present Prolonged QT interval no longer present Electronically Signed On 01-16-23 12:58:15 CDT by Jhonathan Vital
== END 2023-01-11 21:20 | disposition home or self-care (01) ==
LOC: ER 12:03 → ERHOLD 15:01 → 4TH 19:18
PROVIDERS: ADMIT Internal Medicine Nephrology; ATTEND Internal Medicine Nephrology
DX: I25.110 Atherosclerotic heart disease of native coronary artery with unstable angina pectoris (principal); I10 Essential (primary) hypertension; E78.5 Hyperlipidemia, unspecified; E03.9 Hypothyroidism, unspecified; Z95.5 Presence of coronary angioplasty implant and graft; Z79.82 Long term (current) use of aspirin; Z79.899 Other long term (current) drug therapy
CPT/HCPCS: 93005 ×2; 93306; 85025; 80048 ×2; 36415; 83735; 80061; 85379 ×2; 80076; 84484 ×4; 83880; 71045; 93458; 76937; 96375; 96372; 96374; 99285; C1893; Q9966; J1644; J1650; J2001; J2270 ×2; J1170 ×3; J2405; G0378 ×5; J7040